=== PATIENT | male | born 1985 | race Caucasian/White ===

== ENCOUNTER 2021-10-12 21:12 | Emergency (ER) | payer MEDICAID, SELFPAY ==
[2021-10-12 21:34] VITALS: BP 121/75; PULSE 101; RESP 20; TEMP 36.7; O2SAT 97; BMI 33.6
--- NOTE | 2021-10-12 21:47 | ECG_ITS ---
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 Measurements Intervals Bland Rate: 97 P: 70 MT: 159 QRS: 29 QRSD: 85 T: 35 QT: 341 QTc: 435 Interpretive Statements SINUS RHYTHM POSSIBLE LEFT ATRIAL ENLARGEMENT [-0.1mV P-WAVE IN V1/V2] Compared to ECG 01/03/2018 15:12:24 Sinus arrhythmia no longer present ST (T wave) deviation no longer present Early repolarization no longer present Electronically Signed On 10-14-2021 9:15:29 CDT by Dilan Judd M.D. [id number]
--- NOTE | 2021-10-12 21:47 | XRR_ITS ---
PROCEDURE INFORMATION: Exam: XR Chest Exam date and time: 10/12/2021 9:51 PM Age: 35 years old Clinical indication: Sternal or substernal pain; Additional info: Cp TECHNIQUE: Imaging protocol: XR of the chest. Views: 1 view. COMPARISON: CR Chest 2 views* [id number] 01/03/2018 4:26 PM FINDINGS: Lungs: Unremarkable. No consolidation. Pleural spaces: Unremarkable. No pleural effusion. No pneumothorax. Heart/Mediastinum: Unremarkable. No cardiomegaly. Bones/joints: Unremarkable. XR/XR chest 1V portable [id number] IMPRESSION: No acute findings.
[2021-10-12 21:58] LABS: Basophils # 0.1 10^3/uL (0.0-0.1); Basophils % 0.3 %; Eosinophils # 0.3 10^3/uL (0.0-0.8); Eosinophils % 1.3 %; Hematocrit 48.7 % (42.0-52.0); Hemoglobin 16.5 g/dL (11.7-16.6); Lymphocytes # 0.6 10^3/uL (0.8-4.8); Lymphocytes % 2.7 %; Mean Corpuscular HGB Conc 33.9 g/dL (30.0-36.0); Mean Corpuscular Hemoglobin 30.6 pg (28.0-34.0); Mean Corpuscular Volume 90.4 fl (80-94); Mean Platelet Volume 10.5 fL (7.4-10.4); Monocytes # 1.1 10^3/uL (0.2-0.9); Monocytes % 4.9 %; Neutrophils # 19.75 10^3/uL (1.8-7.7); Neutrophils % 90.4 %; Nucleated Red Blood Cells % 0 %; Platelet Count 264 10^3/cmm (130-400); Red Blood Count 5.39 10^6/uL (4.1-5.3); Red Cell Distribution Width 12.1 % (12.1-15.1); White Blood Count 21.9 10^3/uL (4.0-10.0)
--- NOTE | 2021-10-12 22:10 | CTR_ITS ---
PROCEDURE INFORMATION: Exam: CTA Chest With Contrast Exam date and time: 10/12/2021 11:32 PM Age: 35 years old Clinical indication: Sternal or substernal pain; Patient HX: C/O central cp; Additional info: Chest pain TECHNIQUE: Imaging protocol: Computed tomographic angiography of the chest with contrast. 3D rendering (Not supervised by radiologist): MIP and/or 3D reconstructed images were created by the technologist. Radiation optimization: All CT scans at this facility use at least one of these dose optimization techniques: automated exposure control; mA and/or kV adjustment per patient size (includes targeted exams where dose is matched to clinical indication); or iterative reconstruction. Contrast material: OMNI 350; Contrast volume: 67 ml; Contrast route: INTRAVENOUS (IV); COMPARISON: CR (CHEST, ) 10/12/2021 9:51 PM RADIATION DOSE METRICS: Total DLP (mGy-cm): 530.84 FINDINGS: Pulmonary arteries: Normal. No pulmonary emboli. Aorta: Unremarkable. No aortic aneurysm. No aortic dissection. Lungs: Mild haziness seen in the dependent portion of the lungs compatible with dependent atelectasis. Pleural spaces: Unremarkable. No pneumothorax. No pleural effusion. Heart: Unremarkable. No cardiomegaly. No pericardial effusion. Lymph nodes: Unremarkable. No enlarged lymph nodes. Bones/joints: Unremarkable. No acute fracture. Soft tissues: Unremarkable. CT/CT angio chest PE protcl [id number] IMPRESSION: 1. There is no evidence for pulmonary emboli. 2. There are no acute chest findings.
[2021-10-12 22:25] LABS: Troponin(5th) Baseline 7 ng/L (0-15)
[2021-10-12 22:29] LABS: Alanine Aminotransferase 79 U/L (0-41); Albumin Level 5.5 g/dL (3.5-5.2); Alkaline Phosphatase 84 IU/L (40-130); Aspartate Amino Transferase 37 U/L (0-40); Blood Urea Nitrogen 16 mg/dL (6-20); Calcium 10.4 mg/dL (8.5-10.5); Carbon Dioxide 22 mmol/L (22-29); Chloride 101 mmol/L (98-107); Globulin 2.2 g/dL (1.3-4.6); Glomerular Filtration Rate 85.5 mL/min (90-130); Glucose 119 mg/dL (65-115); NT Pro B Type Natriuretic Pept 5 pg/mL (0-125); Osmolality Calculated 288 mOsm/kg (285-295); Sodium 138 mmol/L (136-145); Total Bilirubin 0.4 mg/dL (0.15-1.2); Total Protein 7.7 g/dL (6.6-8.7)
[2021-10-12 22:31] LABS: Anion Gap 19.5 (5-19); Potassium 4.5 mmol/L (3.5-5.1)
[2021-10-12] MEDS: ondansetron 2 mg/ML SDV 2 mL 4 MG IVP (22:31)
[2021-10-12] MEDS: morphine 4 mg/mL SDV 1 mL 8 MG IVP (22:31)
[2021-10-12 23:17] VITALS: BP 130/85; PULSE 95; RESP 14; O2SAT 96
[2021-10-12] MEDS: iohexol 350 mg/mL 100 mL Btl IV (23:37)
[2021-10-12 23:52] VITALS: BP 161/94; PULSE 94; RESP 15; O2SAT 94
[2021-10-13] MEDS: ketorolac 30 mg/mL INJ 15 MG IVP (00:52)
[2021-10-13 01:04] VITALS: BP 125/63; PULSE 88; RESP 18; O2SAT 96
--- NOTE | 2021-10-15 01:19 | ED_ITS ---
HPI - Chest Pain General: Chief Complaint: Chest Pain Stated Complaint: Chest pain Time Seen by Provider: 10/12/21 22:03 Source: patient History of Present Illness: 35 year old male who says he's had a heart attack in the past. No stents placed. He also says that he's had pericarditis. He presents with sharp crushing chest pain. He has shortness of breath. No fever. No vomiting. MD complaint: chest pain Pertinent past history: prior MN and other Onset (ago): hour(s) Timing of current episode: constant Prior episodes: Yes Onset: during rest Pain location: substernal Severity: severe Quality: heaviness and sharp Relieving factors: nothing Exacerbating factors: nothing Associated symptoms: Reports dyspnea; Deny abdominal pain, diaphoresis, fever(s), leg edema or nausea Review of Systems Const: Denies: fever(s) or diaphoresis Eyes: Denies: change in vision ENMT: Denies: throat pain Card: Reports: chest pain; Denies: edema Resp: Reports: dyspnea GI: Denies: abdominal pain or nausea Neuro: Denies: numbness in extremities or weakness in extremities Physical Exam Const: COMMON NORMALS: alert GENERAL APPEARANCE: cooperative and ill ap pearing (mildly); not comfortable HENMT: COMMON NORMALS: normocephalic and TM's normal bilaterally HEAD & SCALP: normocephalic FACE & SINUS: normal facial exam TYMPANIC MEMBRANE: TM's normal bilaterally Eye: COMMON NORMALS: Equal, round and reactive pupils present and EOMs intact bilaterally PUPIL: Yes Equal, round and reactive pupils present Chest: COMMONS NORMALS: normal inspection of the chest CHEST: Yes tenderness Resp: COMMON NORMALS: normal respiratory effort, No retractions, No use of accessory muscles and clear to auscultation bilaterally AUSCULTATION: clear to auscultation bilaterally Cardio: COMMON NORMALS: regular rate, regular rhythm and Peripheral pulses 2+ throughout RATE: regular rate RHYTHM: regular rhythm PERIPHERAL PULSES: Peripheral pulses 2+ throughout GI: COMMON NORMALS: Normal to inspection, nondistended, normoactive bowel sounds present Extremity: COMMON NORMALS: no pedal edema Neuro: SENSORIUM/ORIENTATION: Yes alert Course Vital Signs: Vital signs: Vital Signs Temperature 98.1 F 10/12/21 21:34 Pulse Rate 88 10/13/21 01:04 Respiratory Rate 18 10/13/21 01:04 Blood Pressure 125/63 10/13/21 01:04 Pulse Oximetry 96 10/13/21 01:04 MDM - Chest Pain Medical Decision Making Ongoing cp with a hx of pericarditis. WBC is 22 with mild left shift. Hb is normal. BMP is normal. Troponin normal at baseline and at 2h. CTA is performed due to hx. It is negative. No pericardial effusion. No reason for leukocytosis identified. Will allow home but with close oupt fu. Lab Data : 10/12/21 21:50 10/12/21 21:50 Radiology Impressions Chest X-Ray 10/12/21 21:47 IMPRESSION: No acute findings. Chest CTA 10/12/21 22:10 IMPRESSION: 1. There is no evidence for pulmonary emboli. 2. There are no acute chest findings. Laboratory Results WBC 21.9 10^3/uL (4.0-10.0) H 10/12/21 21:50 RBC 5.39 10^6/uL (4.1-5.3) H 10/12/21 21:50 Hgb 16.5 g/dL (11.7-16.6) 10/12/21 21:50 Hct 48.7 % (42.0-52.0) 10/12/21 21:50 MCV 90.4 fl (80-94) 10/12/21 21:50 MCH 30.6 pg (28.0-34.0) 10/12/21 21:50 MCHC 33.9 g/dL (30.0-36.0) 10/12/21 21:50 RDW 12.1 % (12.1-15.1) 10/12/21 21:50 Plt Count 264 10^3/cmm (130-400) 10/12/21 21:50 MPV 10.5 fL (7.4-10.4) H 10/12/21 21:50 Neut % (Auto) 90.4 % 10/12/21 21:50 Lymph % (Auto) 2.7 % 10/12/21 21:50 Greenlee % (Auto) 4.9 % 10/12/21 21:50 Eos % (Auto) 1.3 % 10/12/21 21:50 Baso % (Auto) 0.3 % 10/12/21 21:50 Neut # (Auto) 19.75 10^3/uL (1.8-7.7) H 10/12/21 21:50 Lymph # (Auto) 0.6 10^3/uL (0.8-4.8) L 10/12/21 21:50 Greenlee # (Auto) 1.1 10^3/uL (0.2-0.9) H 10/12/21 21:50 Eos # (Auto) 0.3 10^3/uL (0.0-0.8) 10/12/21 21:50 Baso # (Auto) 0.1 10^3/uL (0.0-0.1) 10/12/21 21:50 Nucleated RBC % (auto) 0 % 10/12/21 21:50 Nucleated RBCs # 0.0 /100WBC 10/12/21 21:50 Sodium 138 mmol/L (136-145) 10/12/21 21:50 Potassium 4.5 mmol/L (3.5-5.1) 10/12/21 21:50 Chloride 101 mmol/L (98-107) 10/12/21 21:50 Carbon Dioxide 22 mmol/L (22-29) 10/12/21 21:50 Anion Gap 19.5 (5-19) H 10/12/21 21:50 BUN 16 mg/dL (6-20) 10/12/21 21:50 Creatinine 1.0 mg/dL (0.7-1.2) 10/12/21 21:50 GFR Calculation 85.5 mL/min (90-130) L 10/12/21 21:50 Glucose 119 mg/dL (65-115) H 10/12/21 21:50 Calculated Osmolality 288 mOsm/kg (285-295) 10/12/21 21:50 Calcium 10.4 mg/dL (8.5-10.5) 10/12/21 21:50 Total Bilirubin 0.4 mg/dL (0.15-1.2) 10/12/21 21:50 AST 37 U/L (0-40) 10/12/21 21:50 ALT 79 U/L (0-41) H 10/12/21 21:50 Alkaline Phosphatase 84 IU/L (40-130) 10/12/21 21:50 Troponin T Baseline 7 ng/L (0-15) 10/12/21 21:50 Troponin T 120 Minute 6.00 ng/L (0-15) 10/12/21 23:55 Delta Troponin T Not Reportable 10/12/21 23:55 NT-Pro-B Natriuret Pep 5 pg/mL (0-125) 10/12/21 21:50 Total Protein 7.7 g/dL (6.6-8.7) 10/12/21 21:50 Albumin 5.5 g/dL (3.5-5.2) H 10/12/21 21:50 Globulin 2.2 g/dL (1.3-4.6) 10/12/21 21:50 Discharge Plan Discharge Patient Disposition: Home Clinical Impression: Chest pain Condition: Stable Prescriptions: New Medrol (Kwame) 4 mg tablets,dose pack See Rx Instructions .ROUTE .COMPLEX Qty: 21 0RF Rx Instructions: orally per package directions Discharge Orders: Discharge ED (Routine); Ordered 10/13/21 Ordered By: Akash Gao Referrals: James Mccrary MD [Primary Care Provider] - Discharge Diet: Advance as tolerated Discharge Activity: Resume usual activity Patient Instructions: Chest Pain (ED) Activity Restrictions/Additional Instructions: Return for worsening chest pain despite treatment, fever greater than 100, cough, sputum production, vomiting, any other concerning symptoms. Coding Level of Care Code ED Fence Erector Supervisor for Rick Cardenas
== END 2021-10-13 01:06 | disposition home or self-care (01) ==
PROVIDERS: Nurse Practitioner Family; Emergency Provider Emergency Medicine; PCP Family Medicine
DX: R07.9 Chest pain, unspecified (principal); I25.2 Old myocardial infarction
CPT/HCPCS: 71045; 71275; 80053; 83880; 84484; 85025; 93005; 96374; 96375; 99284; J1885; J2270; J2405; Q9967

== ENCOUNTER → 2022-01-19 10:12 | Outpatient (BNVA) | payer MEDICAID, SELFPAY | PROVIDERS: PCP Family Medicine; Visit Provider Anesthesiology Pain Medicine | DX: G89.29 Other chronic pain (principal); M54.14 Radiculopathy, thoracic region; M54.16 Radiculopathy, lumbar region; M79.604 Pain in right leg; M79.605 Pain in left leg; Z87.891 Personal history of nicotine dependence | CPT/HCPCS: 72070; 72110; 99204 ==

== ENCOUNTER 2022-02-15 19:05 | Emergency (ER) | payer MEDICAID, SELFPAY ==
[2022-02-15 19:10] VITALS: BP 141/88; PULSE 83; RESP 16; TEMP 37; O2SAT 98; BMI 33.6
--- NOTE | 2022-02-15 19:29 | W.ED.HA ---
HPI - Headache General: Chief Complaint: Headache Stated Complaint: Ear Ache\Headache Time Seen by Provider: 02/15/22 19:25 History of Present Illness: 36-year-old male patient comes in with for persistent headache since having acupuncture about 1 week ago. Patient has chronic neck pain and was recommended for acupuncture to help with his chronic pain. Patient reports that after having the acupuncture he had an increase in his neck discomfort and now has a headache in which is made it difficult for him to sleep. Patient also reports some more difficulty with swallowing cold items since the increase in his neck discomfort. Patient appears nontoxic. Patient appears in mild to moderate pain. Review of Systems General: Reports: 10 or more systems reviewed and unremarkable except in HPI and below Musc: Reports: neck pain Neuro: Reports: headache(s) PFSH ED PFSH: Family History (Updated 01/19/22 @ 10:41 by Katherine Merino LPN) Other CAD (coronary artery disease) Cancer Chronic kidney disease (CKD) Diabetes Social History Smoking and tobacco status: former smoker Physical Exam Const: COMMON NORMALS: alert HENMT: COMMON NORMALS: normocephalic HEAD & SCALP: normocephalic Eye: GENERAL EYE: appearance normal, both eyes and all related structures Neck/C-Spine: COMMON NORMALS: no meningeal signs CERVICAL SPINE: No Cervical spine tenderness, No step off deformity and Yes Paracervical muscle tenderness Chest: COMMONS NORMALS: normal inspection of the chest Resp: COMMON NORMALS: normal respiratory effort Cardio: COMMON NORMALS: regular rate RATE: regular rate Back/Pelvis: COMMON NORMALS: thoracic and lumbar spine normal to inspection Extremity: COMMON NORMALS: normal to inspection Neuro: SENSORIUM/ORIENTATION: Yes alert MENINGEAL SIGNS: Yes no meningeal signs Skin: COMMON NORMALS: no rashes or lesions noted GENERAL SKIN EXAM: no rashes or lesions noted Course Vital Signs: Vital signs: Vital Signs Temperature 98.6 F 02/15/22 19:10 Pulse Rate 83 02/15/22 19:10 Respiratory Rate 16 02/15/22 19:10 Blood Pressure 141/88 02/15/22 19:10 Pulse Oximetry 98 02/15/22 19:10 Oxygen Delivery Me thod 02/15/22 19:10 MDM - Headache Medical Decision Making 36-year-old male patient comes in today with complaints of neck pain that is worsened throughout the week since having acupuncture. Patient now has a headache for the last 2 to 3 days he has been unable to get control with [id number] medications. On exam patient appears in mild to moderate pain. Patient appears nontoxic. Posterior pharynx is pink and moist. Respirations are even lungs are clear to auscultation. Patient has some muscle tenderness to the cervical muscles of his neck. Bilateral tympanic membranes are normal. Differential diagnosis includes intervertebral disc disease, facet arthropathy, tendinitis of the neck, migraine headache. We will treat patient's headache with Toradol, dexamethasone, and 1 hydrocodone tablet. Patient be continued on prednisone routinely for the next 5 days to help with pain and inflammation. Ketorolac and promethazine will be used for recurrent headache. Hydrocodone will be used for severe pain. Patient reported understanding of care plan need for follow-up with primary care for further evaluation and treatment. I also reviewed red flags for patient to return to the ER. No signs of severe distress, serious injury, or serious infection is noted at this time. Discharge Plan Discharge Patient Disposition: Home Clinical Impression: Calcific tendinitis, Tension headache, Neck pain Condition: Stable Prescriptions: New hydrocodone-acetaminophen 5-325 mg tablet 1 tab PO Q8H PRN (Reason: pain (scale score 7-10)) Qty: 6 0RF prednisone 20 mg tablet 20 mg PO BID 5 Days Qty: 10 0RF ketorolac 10 mg tablet 10 mg PO Q8H PRN (Reason: pain) 5 Days Qty: 15 0RF promethazine 12.5 mg tablet 12.5 mg PO TID PRN (Reason: headache or nausea) Qty: 10 0RF No Action gabapentin 300 mg capsule 300 mg PO TID Qty: 90 0RF Medrol (Kwame) 4 mg tablets,dose pack See Rx Instructions .ROUTE .COMPLEX Qty: 21 0RF Rx Instructions: orally per package directions Discharge Orders: Discharge ED (Routine); Ordered 02/15/22 Ordered By: Aleksander Astudillo Referrals: James Mccrary MD [Primary Care Provider] - Discharge Diet: Usual diet Discharge Activity: Increase activity as tolerated Patient Instructions: Tension Headache (ED), Opioid Safety Activity Restrictions/Additional Instructions: Drink plenty of water with medication. Use ketorolac with promethazine 3 times a day as needed for headache. Use hydrocodone for severe pain relief. Continue with prednisone 20 mg twice a day for the next 5 days for inflammation. You may need to take prednisone with food on your stomach to avoid stomach discomfort. Follow-up with primary care for further instruction. Return to ER for worsening symptoms such as fever greater than 100.4, uncontrolled nausea vomiting, or worsening pain. Coding Level of Care Code ED Vacuum Tester Cans for Rick Cardenas
[2022-02-15] MEDS: HYDROcodone-acetaminophen 10-325 mg Tablet 1 TAB PO (19:38)
[2022-02-15] MEDS: ketorolac 30 mg/mL INJ IM (19:39)
[2022-02-15] MEDS: dexamethasone 10 mg/mL INJ IM (19:39)
[2022-02-15] MEDS: promethazine 25 mg Tablet PO (19:45)
== END 2022-02-15 20:06 | disposition home or self-care (01) ==
PROVIDERS: Emergency Provider Nurse Practitioner Family; PCP Family Medicine
DX: G44.209 Tension-type headache, unspecified, not intractable (principal); M54.2 Cervicalgia; M65.20 Calcific tendinitis, unspecified site; Z87.891 Personal history of nicotine dependence
CPT/HCPCS: 96372; 99284; J1100; J1885; Q0169

== ENCOUNTER → 2022-02-23 09:02 | Outpatient (BNVA) | payer MEDICAID, SELFPAY | PROVIDERS: PCP Family Medicine; Visit Provider Anesthesiology Pain Medicine | DX: M54.50 Low back pain, unspecified (principal); M79.604 Pain in right leg; M79.605 Pain in left leg; Z79.891 Long term (current) use of opiate analgesic; Z87.891 Personal history of nicotine dependence | CPT/HCPCS: 99214 ==

== ENCOUNTER → 2022-03-26 09:08 | Outpatient (BNVA) | payer MEDICAID, SELFPAY | PROVIDERS: PCP Family Medicine; Visit Provider Anesthesiology Pain Medicine | DX: M79.604 Pain in right leg (principal); M79.605 Pain in left leg; Z87.891 Personal history of nicotine dependence; M51.9 Unspecified thoracic, thoracolumbar and lumbosacral intervertebral disc disorder | CPT/HCPCS: 99214 ==

== ENCOUNTER 2022-03-30 20:00 | Outpatient (CLI) | payer OTHER, SELFPAY | END 2022-03-30 20:01 | disposition home or self-care (01) | LOC: SLEEP 03-31 08:09 | PROVIDERS: PCP Family Medicine; Visit Provider Family Medicine | DX: G47.33 Obstructive sleep apnea (adult) (pediatric) (principal) | CPT/HCPCS: 95810 ==

== ENCOUNTER → 2022-04-09 14:02 | Outpatient (BNVA) | payer OTHER, SELFPAY | PROVIDERS: PCP Nurse Practitioner; Visit Provider Internal Medicine | DX: R07.89 Other chest pain (principal); E78.5 Hyperlipidemia, unspecified; Z87.891 Personal history of nicotine dependence | CPT/HCPCS: 93005; 99203; 99204 ==

== ENCOUNTER 2022-04-27 07:18 | Outpatient (CLI) | payer OTHER, SELFPAY ==
--- NOTE | 2022-04-27 | US_ITS ---
WS: [id number] RIGHT UPPER QUADRANT ULTRASOUND HISTORY: Elevated liver enzymes COMPARISON: None available. Liver: 14.7 cm in length. Normal size liver. No bile duct dilatation or mass. Portal Vein: Normal hepatopetal flow with monophasic waveform. Gallbladder: Normally distended gallbladder with no stones or wall thickening. CBD: 0.2 cm Pancreas: Normal size and echogenicity. Right kidney: 12.3 cm in length. Normal size and echogenicity. No hydronephrosis or mass. Aorta and IVC: Unremarkable abdominal aorta and IVC. No ascites. US/US abdomen limited [id number] IMPRESSION: Normal RIGHT upper quadrant ultrasound.
== END 2022-04-27 07:19 | disposition home or self-care (01) ==
PROVIDERS: PCP Nurse Practitioner; Visit Provider Family Medicine
DX: R74.8 Abnormal levels of other serum enzymes (principal)
CPT/HCPCS: 76705

== ENCOUNTER 2022-05-04 09:20 | Outpatient (CLI) | payer OTHER, SELFPAY ==
--- NOTE | 2022-05-04 10:00 | USCV_ITS ---
Warner, Vega Age: 36 Gender: M : 1985 Exam Date: 05/04/2022 09:36 Ordering Phys: Jens Manriquez M.D ([email or web address]) Technologist: Rita Gonzalez Exam Location: [facility] [place] Indication: SOB, CP BP: 132 / 88 HR: 63 Rhythm: Sinus Technical Quality: Good MEASUREMENTS (Male / Female) Normal Values 2D ECHO LV Diastolic Diameter PLAX 4.4 cm 4.2 - 5.9 / 3.9 - 5.3 cm LV Systolic Diameter PLAX 3.4 cm IVS Diastolic Thickness 0.9 cm 0.6 - 1.0 / 0.6 - 0.9 cm IVS Systolic Thickness 1.3 cm LVPW Diastolic Thickness 0.9 cm 0.6 - 1.0 / 0.6 - 0.9 cm LVPW Systolic Thickness 1.8 cm LVOT Diameter 2.1 cm LV Ejection Fraction 2D Teich 47.4 % LV Ejection Fraction MOD 2C 70.7 % LV Ejection Fraction 2C AL 70.2 % LA Diameter 2.4 cm LA Width 3.6 cm LA Height 4.8 cm RA Width 2.9 cm RA Height 4.1 cm Aorta at Sinotubular Diameter 3.3 cm IVC Diameter 1.1 cm M-MODE MV E Point Septal Separation 0.4 cm DOPPLER AV Peak Velocity 142.0 cm/s LVOT Peak Velocity 81.0 cm/s AV Area Cont Eq vti 2.5 cm squared AV Area Cont Eq pk 2.0 cm squared MV Peak Velocity 101.0 cm/s MV Area PHT 4.8 cm squared Mitral E to A Ratio 1.6 MV E' Velocity 48.5 cm/s Mitral E to MV E' Ratio 7.1 Mitral E to LV E' Lateral Ratio 6.1 Mitral E to LV E' Septal Ratio 8.7 TR Peak Velocity 86.0 cm/s TR Peak Gradient 3.0 mmHg Right Atrial Pressure 3.0 mmHg Pulmonary Artery Systolic Pressu 6.0 mmHg RV Acceleration Time 0.1 s RV Ejection Time 0.3 s RV AcT/ET 0.4 FINDINGS Left Ventricle Normal left ventricular size, systolic function and wall thickness, with no regional wall motion abnormalities. Left ventricular ejection fraction is estimated at 60 %. Normal diastolic function. Right Ventricle Normal right ventricular size and systolic function. Right ventricular systolic pressure 6 mmHg. Right Atrium Normal right atrial size. Left Atrium Normal left atrial size. Mitral Valve Structurally normal mitral valve. No mitral valve stenosis. Trace mitral valve regurgitation. Aortic Valve Structurally normal trileaflet aortic valve. No aortic valve stenosis. No aortic valve regurgitation. Tricuspid Valve Structurally normal tricuspid valve. No tricuspid valve stenosis. Trace tricuspid valve regurgitation. Pulmonic Valve Structurally normal pulmonic valve. No pulmonary valve stenosis. No significant pulmonary valve regurgitation. Pericardium No pericardial effusion. Aorta Normal size aortic root and proximal ascending aorta. IVC Normal IVC dimension with >50% respiratory change of the inferior vena cava. CONCLUSIONS 1. Normal left ventricular size, systolic function and wall thickness, with no regional wall motion abnormalities. Left ventricular ejection fraction is estimated at 60 %. Normal diastolic function. 2. Normal right ventricular size and systolic function. 3. No significant valvular abnormality. 4. No prior similar studies to compare. Sandra Brand MD (Electronically Signed) Final Date: 10 May 2022 15:57 S
== END 2022-05-04 09:21 | disposition home or self-care (01) ==
LOC: RAD 09:21
PROVIDERS: PCP Nurse Practitioner; Visit Provider Internal Medicine
DX: R06.02 Shortness of breath (principal); R07.9 Chest pain, unspecified
CPT/HCPCS: 93306

== ENCOUNTER 2022-05-06 10:05 | Emergency (ER) | payer OTHER, SELFPAY ==
[2022-05-06 10:30] VITALS: BP 125/82; PULSE 81; RESP 14; TEMP 36.7; O2SAT 98; BMI 35.0
--- NOTE | 2022-05-06 12:15 | W.ED.BACK ---
HPI - Back Pain/Injury General: Chief Complaint: Back Pain/Injury Stated Complaint: Back pain Time Seen by Provider: 05/06/22 11:31 Source: patient Mode of arrival: EMS History of Present Illness: 36-year-old male presents emergency room complaining of back pain. He said chronic back problems. He has pain radiating down his legs bilaterally severe he feels like it is difficult time walking. It began yesterday after he had a chiropractor appointment they did some cupping treatments to his lower low back he felt a little better for a while then it began to worsen to the point where it was severe. He has not had any bowel or bladder dysfunction. He has been seen at the ID for this and has an MRI scheduled evidently tomorrow. No previous surgeries of his low back. MD elicited complaint: back pain Pertinent past history: prior back pain Onset (ago): day(s) (1) Timing: constant Severity: severe Similar Symptoms Previously: Yes Quality: sharp Location: lumbar spine Radiation: left upper leg and right upper leg Associated symptoms: Reports difficulty walking, numbness, tingling/numbness/burning and weakness; Deny abdominal pain, arthralgias, chills, change in bowel habits, dysuria, fatigue, fecal incontinence, fever(s), hematuria, myalgias, nausea, syncope, urinary frequency, urinary urgency or vomiting Review of Systems Const: Denies: fever(s), chills, fatigue or malaise ENMT: Denies: throat pain, ear or mastoid pain, nasal discharge or nasal congestion Card: Denies: syncope Resp: Denies: dyspnea, productive cough or non-productive cough GI: Denies: abdominal pain, nausea, vomiting, fecal incontinence or change in bowel habits : Denies: flank pain, difficulty urinating, dysuria, urinary frequency, urinary urgency or hematuria Skin/Breast: Denies: rash or pruritus Neuro: Reports: difficulty walking PFSH ED PFSH: Medical History (Updated 05/14/22 @ 00:01 by ) Hearing loss Hypoglycemia Migraine PTSD (post-traumatic stress disorder) Sleep apnea Surgical History (Updated 05/06/22 @ 12:18 by Nasim Myers DO) No pertinent past surgical history Family History Other CAD (coronary artery disease) Cancer Chronic kidney disease (CKD) Diabetes Social History Smoking and tobacco status: former smoker Physical Exam Const: GENERAL APPEARANCE: cooperative and comfortable ORIENTATION/CONSCIOUSNESS: Yes awake, Yes oriented to person, Yes oriented to place and Yes oriented to time HENMT: COMMON NORMALS: normocephalic, atraumatic and hearing grossly normal bilaterally HEAD & SCALP: normocephalic and atraumatic Resp: COMMON NORMALS: normal respiratory effort, No retractions, No use of accessory muscles and clear to auscultation bilaterally AUSCULTATION: clear to auscultation bilaterally Cardio: COMMON NORMALS: regular rate, regular rhythm and No murmurs present (Cardio) RATE: regular rate RHYTHM: regular rhythm GI: COMMON NORMALS: Soft to palpation and No hepatosplenomegaly present AUSCULTATION: Yes normoactive bowel sounds PALPATION: Yes Soft to palpation, No Tenderness to palpation present (GI), No Guarding due to palpation present (GI) and Yes No hepatosplenomegaly present Extremity: COMMON NORMALS: normal to inspection, capillary refill normal, no clubbing, cyanosis or edema, no calf tenderness and no pedal edema Neuro: SENSORIUM/ORIENTATION: Yes oriented to person, Yes oriented to place and Yes oriented to time DEEP TENDON REFLEXES: Left patellar reflex intensity grade: 1+ and Right ankle reflex intensity grade: 1+ OTHER: Dorsum plantar flex 5/5 sensation lower extremities reportedly some numbness and tingling. Straight leg raising is positive bilaterally. Skin: COMMON NORMALS: no rashes or lesions noted GENERAL SKIN EXAM: no rashes or lesions noted Course Vital Signs: Vital signs: Vital Signs Temperature 98.0 F 05/06/22 10:30 Pulse Rate 80 05/06/22 15:13 Respiratory Rate 16 05/06/22 15:13 Blood Pressure 108/72 05/06/22 15:13 Pulse Oximetry 96 05/06/22 15:13 Oxygen Delivery Me thod 05/06/22 15:13 MDM - Back Pain/Injury Medical Decision Making back pain improved with meds given. SCripts as above. Pt to follwo up with pcp if not resolving. Medical Records I reviewed the patient's medical records. Labs I reviewed the patient's lab results. Laboratory Results POC Glucose 162 mg/dL (70-110) H 05/06/22 15:22 Discharge Plan Discharge Patient Disposition: Home Clinical Impression: Lumbar radiculopathy Condition: Stable Prescriptions: New prednisone 20 mg tablet 20 mg PO TID Qty: 15 0RF Rx Instructions: 1 p.o. 3 times daily x3 days, 1 p.o. twice daily x2 days, 1 p.o. daily x2 days Lyrica 75 mg capsule 75 mg PO BID Qty: 60 0RF tizanidine 4 mg tablet 4 mg PO Q6H PRN (Reason: muscle spasticity) Qty: 20 0RF Rx Instructions: do not exceed 3 doses per 24 hrs hydrocodone-acetaminophen 5-325 mg tablet 1 tab PO Q6H PRN (Reason: pain) Qty: 15 0RF diclofenac sodium 75 mg tablet,delayed release (DR/EC) 75 mg PO Q12H PRN (Reason: pain) Qty: 20 0RF No Action cholecalciferol (vitamin D3) 50 mcg (2,000 unit) capsule 100 mcg PO DAILY atorvastatin 80 mg tablet 40 mg PO DAILY gabapentin 300 mg capsule 300 mg PO TID Qty: 90 0RF Discharge Orders: Discharge ED (Routine); Ordered 05/06/22 Ordered By: Nasim Myers Referrals: Cindy Winchester FNP [Primary Care Provider] - Discharge Diet: Usual diet Discharge Activity: Limit activity as instructed Patient Instructions: Opioid Safety, Pain Management Activity Restrictions/Additional Instructions: No heavy lifting stooping bending or twisting. Use medications given above for your back pain. Keep appointment for MRI tomorrow. Coding Level of Care Code ED Felt Washing Machine Tender for Rick Fwd Exam Comprehensive
[2022-05-06] MEDS: dexamethasone 10 mg/mL INJ IM (12:37)
[2022-05-06 12:39] VITALS: RESP 18; O2SAT 98
[2022-05-06] MEDS: ketorolac 30 mg/mL INJ IVP (12:39)
[2022-05-06] MEDS: morphine 4 mg/mL SDV 1 mL IVP ×2 (12:39→13:31)
[2022-05-06] MEDS: orphenadrine 30 mg/mL Inj 2 mL 60 MG IVP (12:40)
[2022-05-06 13:31] VITALS: RESP 16
[2022-05-06 14:19] VITALS: BP 114/70; PULSE 82; RESP 17; O2SAT 96
[2022-05-06 14:33] VITALS: RESP 17
[2022-05-06] MEDS: HYDROmorphone 1 mg/mL INJ 1 mL IVP (14:33)
[2022-05-06 15:13] VITALS: BP 108/72; PULSE 80; RESP 16; O2SAT 96
[2022-05-06 15:26] LABS: Glucose Point of Care 162 mg/dL (70-110)
== END 2022-05-06 16:00 | disposition home or self-care (01) ==
PROVIDERS: Emergency Provider Family Medicine; PCP Nurse Practitioner
DX: M54.16 Radiculopathy, lumbar region (principal); Z87.891 Personal history of nicotine dependence
CPT/HCPCS: 36416; 82962; 96372; 96374; 96375; 96376; 99284; J1100; J1170; J1885; J2270; J2360

== ENCOUNTER 2022-05-07 07:02 | Outpatient (CLI) | payer OTHER, SELFPAY ==
--- NOTE | 2022-05-07 07:25 | MR_ITS ---
WS: [id number] MRI HEAD WITHOUT CONTRAST TECHNIQUE: Sagittal T1, T2 axial, T2 axial FLAIR, axial and coronal T1 images, axial susceptibility w eighted imaging, axial diffusion weighted images, and coronal T2 images were obtained. CLINICAL INFORMATION: MEMORY LOSS AND CHRONIC TENSION HEADACHES COMPARISON: CT December 2017 FINDINGS: No evidence of restricted diffusion to suggest acute ischemia. Ventricular system and basal cisterns are patent. 2 or 3 tiny foci of T2 hyperintensity in the periventricular and subcortical white matter of doubtful clinical significance but can be seen with migraine headaches. No extra-axial fluid fareed ections. No evidence of mass or mass effect. Normal posterior fossa. No extra-axial fluid collections. No evidence of mass or mass effect. Normal posterior nasopharynx. Paranasal sinuses and mastoid air cells are well aerated. No hemosiderin on th e susceptibility weighted images. Normal optic chiasm and pituitary infundibulum. MR/MR head wo con* [id number] IMPRESSION: 1. No evidence of restricted diffusion to suggest acute ischemia. 2. 2 or 3 tiny foci of T2 hyperintensity in the subcortical and periventricula r white matter of doubtful clinical significance but can be seen with migraine headaches. 3. Normal optic chiasm and pituitary infundibulum. 4. No hemosiderin on susceptibly weighted images. 5. No other suspicious findings
--- NOTE | 2022-05-07 07:25 | MR_ITS ---
WS: [id number] MRI LUMBAR SPINE NONCONTRAST TECHNIQUE: Sagittal T1, T2 and STIR imaging. Axial T1 and T2 imaging. CLINICAL INFORMATION: RIGHT RADICULOPATHY COMPARISON: None. FINDINGS: Normal lumbar alignment. No acute compression. No high-grade central canal stenosis. L1-L2: Normal. L2-L3: Normal. L3-L4: Tiny LEFT foraminal protrusion with mild LEFT foraminal narrowing and slight contact of the ex iting L3 nerve root. RIGHT foramen is patent. Spinal canal is patent. Mild facet arthropathy. L4-L5: Mild annular bulging with slight effacement of ventral thecal sac. RIGHT eccentric disc bulgin g with mild RIGHT foraminal narrowing. Mild facet arthropathy. Spinal canal is patent. L5-S1: No significant disc bulging. Mild facet arthropathy. Spinal canal and foramen are patent. Visualized pelvic bony structures: Normal. Paravertebral soft tissues: Normal. MR/MR lumbar spine wo con* [id number] IMPRESSION: 1. Tiny LEFT proximal foraminal protrusion L3-L4 with mild LEFT foraminal narr owing and slight contact of the exiting LEFT L3 nerve root. 2. RIGHT eccentric disc bulging L4-L5 slightly encroaches on the exiting RIGHT L4 nerve root with mild RIGHT foraminal narrowing. 3. Mild facet arthropathy L3-L4 and L4-L5. 4. Mild disc bulging cervical spine seen on the reimbursement analyst imaging C4-C5.
== END 2022-05-07 07:03 | disposition home or self-care (01) ==
PROVIDERS: PCP Nurse Practitioner; Visit Provider Family Medicine
DX: R41.3 Other amnesia (principal); G44.229 Chronic tension-type headache, not intractable; M51.16 Intervertebral disc disorders with radiculopathy, lumbar region; M48.061 Spinal stenosis, lumbar region without neurogenic claudication; M47.896 Other spondylosis, lumbar region
CPT/HCPCS: 70551; 72148

== ENCOUNTER → 2022-06-29 11:55 | Outpatient (BNVA) | payer OTHER, SELFPAY | PROVIDERS: PCP Nurse Practitioner; Referring Provider Nurse Practitioner Family; Visit Provider Specialist | DX: G43.711 Chronic migraine without aura, intractable, with status migrainosus (principal); R29.898 Other symptoms and signs involving the musculoskeletal system | CPT/HCPCS: 99204 ==

== ENCOUNTER 2022-07-24 09:50 | Outpatient (CLI) | payer OTHER, SELFPAY ==
[2022-07-24 09:59] VITALS: BMI 35.4
--- NOTE | 2022-07-24 09:59 | ECG_ITS ---
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 Interpretive Statements NAME OF STUDY: LEXISCAN SESTAMIBI STRESS TEST INDICATION: [Chest Pain, ] Procedure: At the baseline, the blood pressure was 124/69 mmHg with a heart rate of 67 bpm. The electrocardiogram showed normal sinus rhythm, normal axis with normal ST and T's. The Lexiscan was infused over a period of 20 seconds. A total of 0.4 mg of Lexiscan was infused. The stress phase was continued for a total of 5 minutes. Heart rate was at the end of stress phase was 90 bpm and a blood pressure of 121/81 mmHg. The EKG at the peak infusion revealed normal sinus rhythm with no significant ST-T wave changes. Sestamibi was injected 20 seconds after the Lexiscan infusion. Blood pressure at the end of recovery phase was 117/62 mmHg with a heart rate of 85 bpm. Conclusion: 1. Normal EKG response to Lexiscan infusion 2. No Lexiscan induced chest pain or cardiac arrhythmia. 3. Normal blood pressure and heart rate response. 4. Sestamibi/sestamibi perfusion scan pending; see separate report. Electronically Signed On 08-06-2022 11:28:20 RAMP LEAD by Jens Manriquez M.D. [id number]
--- NOTE | 2022-07-24 09:59 | NMCV_ITS ---
NM prudence perf SPECT r/s* [id number] Vega Warner Age: 36 Gender: M : 1985 Exam Date: 07/24/2022 10:56 Ordering Phys: Jens Manriquez M.D ([email or web address]) Technologist: ISABELL Novoa Exam Location: [facility] Indications: CHEST PAIN STRESS TEST [facility] IMAGE PROTOCOL Rest/Stress 1 Lexiscan Day Radiopharmaceutical Dose (mCi) Administration Site Administered by Rest: Tc-99m 10.7 IV ISABELL Smith Sestamibi Stress:Tc-99m 32.8 IV ISABELL Smith Sestamibi Rest: 24-Jul-2022 60 Discovery 630 Stress: 24-Jul-2022 30 Discovery 630 0.4mg Lexiscan. Images obtained in supine and prone position. SPECT RESULTS Technical Quality: Excellent Raw Data Analysis: Normal Image Corrections: No attenuation or motion correction applied Summed Stress Score: 2 Summed Rest Score: 0 Summed Difference Score: 2 PERFUSION FINDINGS There is a small in size reversible perfusion defect in inferolateral wall. This is consistent with small sized area of ischemia in left circumflex artery territory. FUNCTIONAL RESULTS (calculated via Gated SPECT) Stress Image LV EF (%): 64 Stress EDV (mL):122 TID: 1.11 Stress ESV (mL):44 FUNCTIONAL FINDINGS: There is normal left ventricular systolic function. IMPRESSIONS 1. Abnormal myocardial perfusion imaging with small sized area of ischemia seen in left circumflex artery territory. 2. LV systolic function is normal. Jens Manriquez MD (Electronically Signed) Final Date: 24 July 2022 13:31 S
[2022-07-24] MEDS: regadenoson 0.4 Mg/5 ml Syringe IVP (11:28)
[2022-07-24 11:40] VITALS: BP 117/62; PULSE 82
== END 2022-07-24 09:51 | disposition home or self-care (01) ==
LOC: CDL 09:52
PROVIDERS: PCP Nurse Practitioner; Visit Provider Internal Medicine
DX: R07.9 Chest pain, unspecified (principal); R06.02 Shortness of breath
CPT/HCPCS: 36415; 78452; 93017; 96374; A9500; J2785

== ENCOUNTER → 2022-08-10 11:13 | Outpatient (BNVA) | payer OTHER, SELFPAY | PROVIDERS: PCP Nurse Practitioner; Visit Provider Internal Medicine | DX: R07.9 Chest pain, unspecified (principal); E78.5 Hyperlipidemia, unspecified; Z87.891 Personal history of nicotine dependence | CPT/HCPCS: 99214 ==

== ENCOUNTER 2022-08-20 08:54 | Outpatient (CLI) | payer OTHER, SELFPAY ==
[2022-08-20] VITALS (13 sets, daily range): BP systolic 113–134; BP diastolic 70–104; PULSE 64–89; RESP 13–25; TEMP 36.7; O2SAT 95–98; BMI 31.8
--- NOTE | 2022-08-20 09:00 | XACV_ITS ---
Exam Room: 2 Ht: 160 cm Wt: 82 kg BSA: 1.94 m2 Gender: Male : 1985 Any Known Allergies: Other Exam Priority: Routine Procedure(s): Procedure Description: Diagnostic procedure Procedure Description: Left Heart Catheterization Procedure Description: Left ventriculography Procedure Description: Coronary Angiography Diagnostic Cath Status: Elective Diagnostic Findings * INDICATION: Chest pain/ abnormal stress test. * No significant disease noted in the Left Main, Left Anterior Descending, Right, or Circumflex coronary arteries. * Coronary angiography shows right dominance. Conclusions 1. No significant disease noted in the Left Main, Left Anterior Descending, Right, or Circumflex coronary arteries. 2. Normal left ventricular systolic function. Ejection fraction of 55%. Recommendations * Aggressive risk factor modification. * Outpatient cardiology follow up in 4 weeks. Interventional RX Recommendation: medical therapy and/or counseling Diagnostic RX Recommendation: medical therapy and/or counseling Anticoagulation: Heparin Ventriculography Ejection Fraction: 55.0 % Pressures Phase:Rest AO : 97 / 82 ( 91 ) @ 10:30:00 AM 128 / 94 ( 106 ) @ 10:36:00 AM 123 / 90 ( 103 ) @ 10:36:00 AM LV : 156 / 8 / 29 @ 10:35:00 AM 131 / 6 / 26 @ 10:35:00 AM 140 / 17 / 34 @ 10:36:00 AM 134 / 15 / 30 @ 10:36:00 AM Valves Phase:DefaultPhase AV : 9.0 @ 10:42:13 AM 9.0 @ 10:42:13 AM AV Mean Gradient: 18.0 @ 10:42:13 AM 18.0 @ 10:42:13 AM Clinical Evaluation EBL: 5mL-10mL Procedural Details Pre-Procedure Time Out. Identified patient by full name and date of as verbalized by the patient/guarantor. Does the consent match the physician's order: Yes. Accurate & Complete Informed Consent: Yes. Inpatient/Outpatient History & Physical on Chart: Yes. If H&P is completed, is and addenduem needed: No; If yes, is the addendum complete: N/A. Visualize and Verify Site with Patient/Guarantor: N/A. Relevant Radiology Images available: Yes. The risks, benefits, and alternatives of sedation and/or procedure were discussed by physician. The patient agrees to continue. The risks, benefits, and alternatives of sedation and/or procedure were discussed by physician. The patient agrees to continue. Procedure started. Procedure Consent Obtained. Current Diagnosis : Chest Pain. [facility] Clinical Fraility Score: 3: Managing Well. Slate Picker Indications: Other. Chest Pain Symptom Assessment: Atypical Angina. Correct patient, site and procedure confirmed by cath team. Current diagnosis: Chest Pain. PERRLA. Strong, equal hand sectionizer bilaterally. Lungs clear x 5 lobes. IV Site on Arrival: 20 gauge in the left anticubital. IV Fluids: 0.9% NaCl at KVO. 0 mL infused prior to asset availability leader. Pre Procedural Pulses: bilateral dorsalis pedis was 1+. Pre Procedural Pulses: bilateral posterior tibial was 1+. Pre Procedural Pulses: bilateral radial was 2+. Oxygen started at 2liters/min via nasal canula. right groin was prepped with chloroprep then draped in the usual sterile fashion. right radial was prepped with chloroprep then draped in the usual sterile fashion. Baseline sample Acquired. HR: 72 BPM. Physician arrived. Physician scrubbed in. Immediate Pre-Procedure Time Out. Correct Patient: Yes; Correct Procedure: Yes; Correct Site: Yes; Correct Patient Position: Yes; Correct Supplies: Yes; Dried Flammable Prep: Yes; Blood Products Available: N/A;. Lidocaine 1% infiltrated to the right radial. Arterial access obtained. A 5 swazi TIG catheter in over wire. Multiple views taken of left coronary artery. Catheter redirected to the RCA. Multiple views taken of right coronary artery. Catheter removed over the exchange wire. EDP Sample taken: LV 156/8,29; HR: 77 BPM; SpO2: 91%. EDP Sample taken: LV 131/6,26; HR: 74 BPM; SpO2: 95%. LV gram performed in ENRIQUEZ @ 10 mL/second for a total of 30 mL. EDP Sample taken: LV 140/17,34; HR: 73 BPM; SpO2: 96%. Pullback taken: LV 134/15,30; AO 128/94(106); Mean: 18mmHg, Peak to Peak: 9mmHg, SEP: 6sec/min; HR: 66 BPM; SpO2: 96%. Catheter removed over the exchange wire. Physician scrubbed out. A TR Band was successful obtaining hemostatsis at the Right Radial artery insertion site. Post Procedure: Pulses reassessed and unchanged. PERRLA. Strong, equal hand sectionizer bilaterally. No VTE prophylaxis required. Medication's Wasted: Lidocaine 1% = 49.8 mg. Medication's Wasted: Heparin = 1000 units. Total IV fluids: 25 mL. Post-op diagnosis: Non-Obstructive CAD. Complications: None. Estimated blood loss: 5mL-10mL. Responsiveness - Normal response to verbal stimuli; alert and oriented, PERRLA. Airway - Unaffected, no intervention required; spontaneous ventilation. Circulation: W/N/L, pulses unchanged. Nausea/Vomiting: No. Procedure completed. Patient transferred by stretcher to CPRU. Access Site Site: Right Radial artery Sheath Size: 6 Fr Hemostasis Method: TR Band Hemostasis Success: Successful Procedure Medications Start: 10:26 AM Stop: 10:26 AM Medication: Versed Amount: 1 mg Route: I.V. Start: 10:26 AM Stop: 10:26 AM Medication: Fentanyl Amount: 50 mcg Route: I.V. Start: 10:27 AM Stop: 10:27 AM Medication: Nitrogylcerin Amount: 200 mcg Route: I.A. Start: 10:28 AM Stop: 10:28 AM Medication: Heparin Amount: 5000 units Route: I.V. Start: 10:29 AM Stop: 10:29 AM Medication: Versed Amount: 1 mg Route: I.V. Start: 10:29 AM Stop: 10:29 AM Medication: Fentanyl Amount: 50 mcg Route: I.V. I, the attending physician, have reviewed and verified all procedure medications. Yes, all medications given per verbal order History/Risk Factors Hypertension: No Dyslipidemia: Yes Peripheral Arterial Disease (PAD): No Myocardial Infarction (RI): No Obesity: No Renal Disease: No Tobacco Use: Never Prior Interventions PCI: No CABG: No Valve Surgery: No Report Signatures Finalized by Jens Manriquez MD on 09/03/2022 05:34 PM
[2022-08-20] MEDS: diphenhydrAMINE 50 mg Capsule PO (09:23)
[2022-08-20] MEDS: aspirin 325 mg Tablet PO (09:23)
[2022-08-20 09:25] LABS: Basophils # 0.1 10^3/uL (0.0-0.1); Basophils % 0.7 %; Eosinophils # 0.5 10^3/uL (0.0-0.8); Eosinophils % 6.4 %; Hematocrit 44.1 % (42.0-52.0); Lymphocytes # 2.2 10^3/uL (0.8-4.8); Lymphocytes % 29.7 %; Mean Corpuscular Hemoglobin 29.8 pg (28.0-34.0); Mean Corpuscular Volume 87.7 fl (80-94); Mean Platelet Volume 10.3 fL (7.4-10.4); Monocytes # 0.8 10^3/uL (0.2-0.9); Neutrophils # 3.96 10^3/uL (1.8-7.7); Neutrophils % 52.9 %; Nucleated Red Blood Cells % 0 %; Platelet Count 258 10^3/cmm (130-400); Red Blood Count 5.03 10^6/uL (4.1-5.3); Red Cell Distribution Width 12.4 % (12.1-15.1); White Blood Count 7.5 10^3/uL (4.0-10.0)
[2022-08-20 09:41] LABS: Anion Gap 15.9 (5-19); Blood Urea Nitrogen 17 mg/dL (6-20); Calcium 9.5 mg/dL (8.5-10.5); Carbon Dioxide 23 mmol/L (22-29); Chloride 102 mmol/L (98-107); Glucose 108 mg/dL (65-115); Osmolality Calculated 286 mOsm/kg (285-295); Potassium 3.9 mmol/L (3.5-5.1); Sodium 137 mmol/L (136-145)
--- NOTE | 2022-08-20 10:20 | W.PM.OPSUD ---
Surgery/Procedure H&P Update DATE OF PROCEDURE: August 20, 2022 DATE H&P PERFORMED: 08/10/22 H&P UPDATE INFORMATION: I have reviewed H&P completed within last 30 days, I have examined patient prior to procedure and No changes to prior documentation PREOP DIAGNOSIS: Chest pain/ abnormal stress test PRIMARY INDICATION FOR PROCEDURE: Chest pain/ Abnormal stress test PLANNED PROCEDURE: Operation Date: 08/20/22 10:00 Proposed Procedures p Left Heart Cath 41118,R07.9,R94.39(Left) - Jens Manriquez M.D Possible percutaneous coronary intervention PATIENT REASSESSED PRIOR TO SEDATION, WITH NO CHANGE NOTED: Yes PHYSICAL EXAM: alert, oriented x 3, clear to auscultation bilaterally and regular rate & rhythm AIRWAY EVAL/ANESTHESIA PLAN: normal airway, ASA III, Local Anesthesia, Risks, benefits & alternatives of sedation and/or procedure discussed and Patient agrees to continue as planned ADDITIONAL INFORMATION: Moderate sedation
--- NOTE | 2022-08-20 11:03 | PC.NURSE ---
Received pt from medical lab director post diagnostic left heart cath. TR band on right wrist with distal pulses palpable. no bruising or hematoma noted. Pt complains of no pain. Pt and family at bedside educated on restrictions of right wrist and nurse will continue to educate throughout recovery. Pt placed on vital monitor and will be monitored per protocol. Plan is to dc after 3 hrs. Pt stated his understanding of pending discharge.
== END 2022-08-20 13:42 | disposition home or self-care (01) ==
PROVIDERS: PCP Nurse Practitioner; Visit Provider Internal Medicine
DX: R07.9 Chest pain, unspecified (principal); R94.39 Abnormal result of other cardiovascular function study; E78.5 Hyperlipidemia, unspecified; Z82.49 Family history of ischemic heart disease and other diseases of the circulatory system; Z87.891 Personal history of nicotine dependence; G47.30 Sleep apnea, unspecified
CPT/HCPCS: 36415; 80048; 85025; 93458; 96361; 96365; 99152; 99153; C1769; C1887; C1894; J1644; J2250; J3010; J3490; J7030; Q0163; Q9967

== ENCOUNTER → 2022-09-03 10:53 | Outpatient (BNVA) | payer OTHER, SELFPAY | PROVIDERS: PCP Nurse Practitioner; Visit Provider Nurse Practitioner Family | DX: I25.10 Atherosclerotic heart disease of native coronary artery without angina pectoris (principal); Z87.891 Personal history of nicotine dependence | CPT/HCPCS: 36415; 80048; 99214 ==

== ENCOUNTER 2022-09-25 06:00 | Outpatient (RCR) | payer OTHER, SELFPAY | END 2022-10-09 23:59 | disposition home or self-care (01) | LOC: SPT 06:00 | PROVIDERS: PCP Nurse Practitioner; Visit Provider Nurse Practitioner | DX: R26.2 Difficulty in walking, not elsewhere classified (principal) | CPT/HCPCS: 97110; 97112; 97161; 97530 ==

== ENCOUNTER → 2022-10-06 14:18 | Outpatient (BNVA) | payer OTHER, SELFPAY | PROVIDERS: PCP Nurse Practitioner; Visit Provider Specialist | DX: G43.711 Chronic migraine without aura, intractable, with status migrainosus (principal); R29.898 Other symptoms and signs involving the musculoskeletal system | CPT/HCPCS: 99214 ==

== ENCOUNTER 2022-10-10 06:00 | Outpatient (RCR) | payer OTHER, SELFPAY | END 2022-11-08 23:59 | disposition home or self-care (01) | LOC: SPT 06:00 | PROVIDERS: PCP Nurse Practitioner; Visit Provider Nurse Practitioner | DX: R26.2 Difficulty in walking, not elsewhere classified (principal) | CPT/HCPCS: 97110 ==

== ENCOUNTER 2022-11-09 06:00 | Outpatient (RCR) | payer OTHER, SELFPAY | END 2022-12-09 23:59 | disposition home or self-care (01) | LOC: SPT 06:00 | PROVIDERS: PCP Nurse Practitioner; Visit Provider Nurse Practitioner | DX: R26.89 Other abnormalities of gait and mobility (principal) | CPT/HCPCS: 97110 ==

== ENCOUNTER 2022-12-10 06:00 | Outpatient (RCR) | payer OTHER, SELFPAY | END 2023-01-01 23:59 | disposition home or self-care (01) | LOC: SPT 06:00 | PROVIDERS: PCP Nurse Practitioner; Visit Provider Nurse Practitioner | DX: R26.2 Difficulty in walking, not elsewhere classified (principal) | CPT/HCPCS: 97110 ==

== ENCOUNTER → 2023-01-06 10:42 | Outpatient (BNVA) | payer OTHER, SELFPAY | PROVIDERS: PCP Nurse Practitioner; Visit Provider Specialist | DX: G43.711 Chronic migraine without aura, intractable, with status migrainosus (principal); M51.9 Unspecified thoracic, thoracolumbar and lumbosacral intervertebral disc disorder; R53.1 Weakness | CPT/HCPCS: 99214 ==

== ENCOUNTER → 2023-02-10 08:17 | Outpatient (BNVA) | payer OTHER, SELFPAY | PROVIDERS: PCP Nurse Practitioner; Visit Provider Nurse Practitioner Family | DX: L91.8 Other hypertrophic disorders of the skin (principal); L90.5 Scar conditions and fibrosis of skin; L81.4 Other melanin hyperpigmentation; L57.8 Other skin changes due to chronic exposure to nonionizing radiation | CPT/HCPCS: 11200; 99203 ==

== ENCOUNTER → 2023-02-18 15:29 | Outpatient (BNVA) | payer OTHER, SELFPAY | PROVIDERS: PCP Nurse Practitioner; Visit Provider Internal Medicine | DX: E78.5 Hyperlipidemia, unspecified (principal); Z87.898 Personal history of other specified conditions | CPT/HCPCS: 99213 ==

== ENCOUNTER → 2023-03-10 08:02 | Outpatient (BNVA) | payer OTHER, SELFPAY | PROVIDERS: PCP Nurse Practitioner; Visit Provider Specialist | DX: G43.711 Chronic migraine without aura, intractable, with status migrainosus (principal); R29.898 Other symptoms and signs involving the musculoskeletal system | CPT/HCPCS: 99214 ==

== ENCOUNTER → 2023-05-05 10:21 | Outpatient (BNVA) | payer OTHER, SELFPAY | PROVIDERS: PCP Nurse Practitioner; Visit Provider Specialist | DX: G43.711 Chronic migraine without aura, intractable, with status migrainosus (principal); R29.898 Other symptoms and signs involving the musculoskeletal system | CPT/HCPCS: 99214 ==

== ENCOUNTER 2023-07-13 07:48 | Outpatient (CLI) | payer OTHER, SELFPAY ==
--- NOTE | 2023-07-13 08:03 | USR_ITS ---
PROCEDURE INFORMATION: Exam: US Abdomen, Limited; Right Upper Quadrant Exam date and time: 07/13/2023 8:08 AM Age: 37 years old Clinical indication: Abnormal findings; Abnormal lab test; Elevated liver enzymes; Additional info: Elevated lfts TECHNIQUE: Imaging protocol: Real time ultrasound of the abdomen with image documentation. Limited exam focused on the right upper quadrant. COMPARISON: US abdomen limited [id number] 04/27/2022 7:46 AM FINDINGS: Liver: Visualized portions of liver appear mildly heterogeneous, echogenic, suggesting diffuse fatty liver, hepatic steatosis with small region of relative sparing near gallbladder. No intrahepatic bile duct dilatation demonstrated of visualized portions of the liver. Right liver lobe measured at 17.97 cm length. Gallbladder: No gallstones, no wall thickening, and no pericholecystic fluid demonstrated visualized portions gallbladder. Negative sonographic Lombardo's sign. Biliary ducts: Common duct measured 2.3 mm across, within normal. No markedly dilated common duct demonstrated. Pancreas: Portions of pancreas not well visualized/demonstrated. No distinct focal lesions demonstrated of visualized portions of pancreas. Right kidney: Right kidney measured 11.33 cm length. No dilated renal collecting system and no perirenal fluid demonstrated of visualized portions right kidney. Aorta: Visualized portions abdominal aorta, IVC grossly unremarkable. Portal venous: Portal venous flow demonstrated as antegrade. Intraperitoneal space: No ascites demonstrated. US/US abdomen limited [id number] IMPRESSION: Visualized portions of liver appear mildly heterogeneous, echogenic, suggesting diffuse fatty liver, hepatic steatosis with small region of relative sparing near gallbladder.
== END 2023-07-13 07:49 | disposition home or self-care (01) ==
LOC: RAD 07:48
PROVIDERS: PCP Nurse Practitioner; Visit Provider Nurse Practitioner
DX: R79.89 Other specified abnormal findings of blood chemistry (principal); R74.8 Abnormal levels of other serum enzymes; K76.9 Liver disease, unspecified
CPT/HCPCS: 76705

== ENCOUNTER 2023-08-20 10:40 | Outpatient (CLI) | payer OTHER, SELFPAY ==
--- NOTE | 2023-08-20 10:48 | MR_ITS ---
WS: [id number] MRI THORACIC SPINE with and without contrast. HISTORY: Back pain. Change in function after fall. COMPARISON: No similar studies. Thoracic spine radiographs 01/19/2022 TECHNIQUE: Multiplanar sequences are performed in sagittal and axial planes. Postcontrast imaging Mul tiHance 20 mL IV. Mild straightening of the normal lumbar lordosis. No marrow edema or fracture. There is a very slight disc desiccation at T6-7, T7-8 and T8-9. T1-2: Normal. T2-3: Normal. T3-4: Normal. T4-5: Normal. T5-6: Small central disc protrusion contacts the ventral thecal sac. There is contact on the cord. T6-7: Normal. T7-8: Shallow RIGHT paracentral disc protrusion contacts the RIGHT lateral thecal sac. T8-9: Normal. T9-10: Mild bilateral facet arthritis. T10-11: Mild bilateral facet arthritis. T11-12: Normal. Postcontrast images are negative for discitis or osteomyelitis. No enhancing masses. IMPRESSION: 1. Mild straightening of the normal thoracic kyphosis. 2. No acute or remote thoracic spine fracture. 3. Small central disc protrusion at T5-6 contacts the ventral thoracic cord but no stenosis. 4. Shallow RIGHT paracentral disc protrusion at T7-8 contacts and slightly deforms the RIGHT lateral thecal sac. 5. No enhancing masses. No discitis or osteomyelitis.
[2023-08-20] MEDS: gadobenate dimeglumine 20 mL vial IV (12:04)
== END 2023-08-20 10:41 | disposition home or self-care (01) ==
LOC: RAD 10:41
PROVIDERS: PCP Nurse Practitioner; Visit Provider Nurse Practitioner
DX: R68.89 Other general symptoms and signs (principal); W19.XXXA Unspecified fall, initial encounter; M40.204 Unspecified kyphosis, thoracic region; M51.24 Other intervertebral disc displacement, thoracic region
CPT/HCPCS: 72157; A9577

== ENCOUNTER → 2024-02-17 12:54 | Outpatient (BNVA) | payer OTHER, SELFPAY | PROVIDERS: PCP Nurse Practitioner; Visit Provider Internal Medicine | DX: R07.9 Chest pain, unspecified (principal); E78.5 Hyperlipidemia, unspecified | CPT/HCPCS: 99214 ==

== ENCOUNTER 2024-03-30 07:01 | Outpatient (CLI) | payer OTHER, SELFPAY ==
--- NOTE | 2024-03-30 07:14 | USR_ITS ---
PROCEDURE INFORMATION: Exam: US Abdomen; Limited Exam date and time: 03/30/2024 7:39 AM Age: 38 years old Clinical indication: Abnormal findings; Abnormal lab test; Elevated liver enzymes TECHNIQUE: Imaging protocol: Real time ultrasound of the abdomen with image documentation. Limited exam focused on the region of clinical interest. COMPARISON: US abdomen limited [id number] 07/13/2023 8:08 AM FINDINGS: Liver: Increased echotexture of the liver. Loss of normal portal triad fat. Biliary ducts: No biliary ductal dilation. Pancreas: Cursory view of the pancreas appear unremarkable perhaps slight increase in echogenicity. Right kidney: Cursory view of the right kidney appear unremarkable. Aorta: Cursory view of the aorta appears normal. Inferior vena cava: Cursory view of the IVC appear normal. US/US abdomen limited [id number] IMPRESSION: 1. Diffuse hepatic steatosis with sparing at the gallbladder fossa. 2. Cursory reviews of the pancreas reveal perhaps mildly increased echogenicity which can be seen in pancreatitis. Correlate clinically.
== END 2024-03-30 07:02 | disposition home or self-care (01) ==
LOC: RAD 07:02
PROVIDERS: PCP Nurse Practitioner; Visit Provider Nurse Practitioner
DX: K76.0 Fatty (change of) liver, not elsewhere classified (principal)
CPT/HCPCS: 76705

== ENCOUNTER 2024-08-17 10:58 | Emergency (ER) | payer OTHER, SELFPAY ==
[2024-08-17 11:02] VITALS: BP 175/76; PULSE 84; RESP 18; TEMP 36.7; O2SAT 98; BMI 38.0
[2024-08-17 12:18] LABS: Basophils % 0.6 %; Eosinophils # 0.5 10^3/uL (0.0-0.8); Eosinophils % 7.7 %; Hematocrit 43.9 % (37-53); Lymphocytes # 2.2 10^3/uL (0.8-4.8); Lymphocytes % 34.4 %; Mean Corpuscular HGB Conc 33.9 g/dL (30-55); Mean Corpuscular Hemoglobin 29.9 pg (27-33); Mean Corpuscular Volume 88.2 fl (82-101); Mean Platelet Volume 10.6 fL (7.4-10.4); Monocytes # 0.6 10^3/uL (0.2-0.9); Monocytes % 8.8 %; Neutrophils # 3.14 10^3/uL (1.8-7.7); Neutrophils % 48.2 %; Nucleated Red Blood Cells % 0 %; Platelet Count 226 10^3/cmm (157-399); Red Blood Count 4.98 10^6/uL (3.85-5.65); Red Cell Distribution Width 12.4 % (12.1-15.1); White Blood Count 6.51 10^3/uL (3.29-11.43)
[2024-08-17 12:36] LABS: Alanine Aminotransferase 65 U/L (0-41); Albumin Level 4.4 g/dL (3.5-5.2); Alkaline Phosphatase 77 U/L (40-130); Anion Gap 16.4 (5-19); Aspartate Amino Transferase 34 U/L (0-40); Blood Urea Nitrogen 12 mg/dL (6-20); Calcium 9.4 mg/dL (8.5-10.5); Carbon Dioxide 24 mmol/L (22-29); Chloride 103 mmol/L (98-107); Creatinine Clr Calc Pharmacy 149.4906; Globulin 2.9 g/dL (1.3-4.6); Glomerular Filtration Rate 126.9 mL/min (90-130); Glucose 103 mg/dL (65-115); Lipase 23 U/L (13-60); Osmolality Calculated 288 mOsm/kg (285-295); Potassium 4.4 mmol/L (3.5-5.1); Sodium 139 mmol/L (136-145); Total Bilirubin 0.2 mg/dL (0.15-1.2); Total Protein 7.3 g/dL (6.6-8.7)
[2024-08-17 13:49] VITALS: BP 126/73; PULSE 78; O2SAT 98
--- NOTE | 2024-08-17 13:53 | CT_ITS ---
WS: [id number] CT ABDOMEN AND PELVIS WITH CONTRAST HISTORY: luq/flank pain TECHNIQUE: Imaging performed of the abdomen and pelvis with IV contrast. Single phase imaging of the abdomen. Coronal and sagittal reformats are submitted. All CT scans at [facility] use at least one of these dose optimization techniques: automated exposure control; mA and/or kV adjustment per patient size (includes targeted exams where dose is matched to clinical indication); or iterative reconstruction. IV CONTRAST: Omnipaque 350; 100 mL IV. Oral contrast: No DLP: 546.43 mGy.cm COMPARISON: 09/28/2015 Lower thorax: Lung bases are clear. Heart is normal size. No hiatal hernia. Liver/biliary system: Normal size with no intrahepatic dilatation. Gallbladder: Normal. No gallstones or wall thickening. No pericholecystic fluid. Pancreas: Normal size pancreas and pancreatic duct. No adjacent inflammation. Spleen: Normal size spleen. No mass or infarct. Adrenal glands: Normal. Right kidney: Normal. Left kidney: Normal. Aorta: Mild atherosclerosis with no aneurysm. Lymphadenopathy: None. Free fluid: None. GI tract: No small bowel obstruction. No evidence for appendicitis. No colitis. Abdominal wall: Ventral abdominal wall hernia contains fat only. Pelvis: No free fluid or adenopathy within the pelvis. Bones: Unremarkable. CT/CT abdomen pelvis w con* [id number] IMPRESSION: 1. No acute abdominopelvic abnormalities. 2. No evidence for GI tract obstruction or diverticulitis. 3. No renal obstruction. 4. No evidence for appendicitis.
--- NOTE | 2024-08-17 13:54 | W.ED.ABDPA2 ---
HPI - Abdominal Pain General: Chief Complaint: Abdominal Pain Stated Complaint: abdominal pain left side Time Seen by Provider: 08/17/24 13:38 Source: patient Mode of arrival: ambulatory Limitations: no limitations History of Present Illness: Patient is a 38-year-old male presents the emergency department complaining of left upper quadrant and flank pain for the past day. Patient states pain came on suddenly while he was lying in bed last night, has been constant since onset. Describes it as a sharp 10/10 pain. He does have a history of kidney stones but states that this feels different. Initially he was seen at the [facility], told he had x-rays done and was told my spleen is about to go. Was then referred to imaging here for a CT, but they told him to come to the ED for evaluation. He is not reporting any other symptoms. He has never had this pain before. Denies any previous history with this plan. No recent trauma. Specifically he is not reporting any fever, chest pain, shortness of breath, nausea/vomiting/diarrhea, or syncopal episodes. He has not taken anything for the pain. During my time of examination his vitals are within normal limits. Past medical history of CAD and PTSD. Last normal bowel movement was this morning. MD elicited complaint: abdominal pain Onset (ago): day(s) Pain Consistency: constant Location: LUQ and L flank Severity: severe Pain scale (0-10): 10 Quality: sharp Radiation: none Migration to: no migration Exacerbating factors: nothing Relieving factors: nothing Associated Symptoms: Denies bloating, change in stool character, chills, constipation, diarrhea, dysuria, fever(s), hematochezia, nausea and vomiting Related Data Home Medications ?Medication ?Instructions ?Recorded ?Confirmed atorvastatin 80 mg tablet 40 mg PO DAILY 04/09/22 02/17/24 cholecalciferol (vitamin D3) 50 100 mcg PO DAILY supplement 04/09/22 02/17/24 mcg (2,000 unit) capsule duloxetine 60 mg capsule,delayed 60 mg PO ONCE 01/06/23 02/17/24 release pregabalin 300 mg capsule (Lyrica) 300 mg PO TID 02/17/24 02/17/24 Previous Rx's ?Medication ?Instructions ?Recorded nitroglycerin 0.4 mg sublingual 0.4 mg sublingual Q5M PRN chest 08/20/22 tablet pain #30 tabs miscellaneous medical supply #1 ea 09/03/22 (Blood Pressure Cuff) Allergies Allergy/AdvReac Type Severity Reaction Status Date / Time cefaclor (From [facility]) Allergy Unknown Verified 08/17/24 11:05 naproxen Allergy Unknown Verified 08/17/24 11:05 Review of Systems General: Reports: 10 or more systems reviewed and unremarkable except in HPI and below Const: Denies: fever(s), chills, change in appetite, change in weight or diaphoresis ENMT: Denies: throat pain or hoarseness Card: Denies: chest pain, palpitations or lightheadedness Resp: Denies: dyspnea, productive cough or wheezing GI: Reports: abdominal pain; Denies: nausea, vomiting, diarrhea, constipation, bloating, change in stool character or hematochezia : Reports: flank pain; Denies: difficulty urinating, dysuria, urinary frequency or urinary urgency Musc: Denies: neck pain or back pain Skin/Breast: Denies: rash or new lesions Neuro: Denies: headache(s) or dizziness PFSH ED PFSH: Medical History Atherosclerosis of coronary artery Sleep apnea Hypoglycemia Migraine PTSD (post-traumatic stress disorder) Hearing loss Surgical History No pertinent past surgical history Family History Other CAD (coronary artery disease) Cancer Chronic kidney disease (CKD) Diabetes Social History Smoking and tobacco/nicotine status: current every day tobacco/nicotine user (chewing tobacco) Physical Exam Const: COMMON NORMALS: no acute distress, average body habitus, patient oriented x3, no limitations, healthy appearing, alert and well nourished GENERAL APPEARANCE: cooperative ORIENTATION/CONSCIOUSNESS: Yes awake HENMT: COMMON NORMALS: normocephalic, atraumatic, hearing grossly normal bilaterally, external ears normal, Normal external nose present, Normal nasal mucous membranes and turbinates present and moist oral mucous membranes HEAD & SCALP: normocephalic and atraumatic NOSE: Normal external nose present and Normal nasal mucous membranes and turbinates present EXTERNAL EAR: Yes external ears normal Eye: COMMON NORMALS: Equal, round and reactive pupils present, EOMs intact bilaterally, conjunctivae normal and normal visual angulo by confrontation CONJUNCTIVA: Yes conjunctivae normal PUPIL: Yes Equal, round and reactive pupils present Neck/C-Spine: COMMON NORMALS: full ROM, supple, no meningeal signs and no JVD Resp: COMMON NORMALS: normal respiratory effort, No retractions, No use of accessory muscles and clear to auscultation bilaterally AUSCULTATION: clear to auscultation bilaterally, no crackles, no rales, no rhonchi and no wheezes Cardio: COMMON NORMALS: no JVD, regular rate, regular rhythm, S1 normal heart sound present, S2 normal heart sound present, No gallops present (Cardio), No clicks present (Cardio), No murmurs present (Cardio), No rub (Cardio) and Peripheral pulses 2+ throughout RATE: regular rate RHYTHM: regular rhythm HEART SOUNDS: S1 normal heart sound present and S2 normal heart sound present PERIPHERAL PULSES: Peripheral pulses 2+ throughout GI: COMMON NORMALS: Normal to inspection, nondistended, normoactive bowel sounds present and no masses INSPECTION: Yes central obesity AUSCULTATION: Yes normoactive bowel sounds PALPATION: No Guarding due to palpation present (GI) and No Rigid due to palpation RECTAL EXAM: Yes deferred OTHER: Easily reducible left upper quadrant tenderness to palpation, as well as tenderness to palpation to the left flank. Edge of spleen not palpable, though patient does have central obesity that could be limiting this exam. No bruising to the abdomen. : COMMON NORMALS: Yes no CVA tenderness BLADDER/KIDNEY EXAM: Yes no CVA tenderness Back/Pelvis: COMMON NORMALS: no CVA tenderness Extremity: COMMON NORMALS: normal to inspection and full ROM Neuro: COMMON NORMALS: patient oriented x3, moves all extremities, no focal motor deficits and no sensory deficits noted SENSORIUM/ORIENTATION: Yes alert MENINGEAL SIGNS: Yes no meningeal signs Psych: COMMON NORMALS: mental status grossly normal, cooperative and speech normal SPEECH: Yes normal speech Skin: COMMON NORMALS: no rashes or lesions noted GENERAL SKIN EXAM: no rashes or lesions noted Course Vital Signs: Vital signs: Vital Signs Temperature 98.0 F 08/17/24 11:02 Pulse Rate 78 08/17/24 13:49 Respiratory Rate 17 08/17/24 14:02 Blood Pressure 126/73 08/17/24 13:49 Pulse Oximetry 98 08/17/24 14:02 Oxygen Delivery Me thod Room Air 08/17/24 13:49 MDM - Abdominal Pain Medical Decision Making This patient was sent by the DC, where they had stated he had signs of splenic complications by x-ray. Patient's vitals have been stable throughout ED stay, he was in the waiting room for 3 to 4 hours prior to being seen and did not report any worsening of pain or other symptoms. His only complaint was abdominal pain to the left upper quadrant area, though on exam he was more tender to the left flank/left lateral rib cage. He did not report any recent illness or sickness, however does note that he has been coughing prior to his pain. All of his lab work was completely normal, this included CBC, CMP, and lipase. His urinalysis did not show any blood that would make me think of atypical presentation of nephrolithiasis, as he did have a history of this. With a CT scan, there was no acute abnormalities reported, specifically noting his spleen appeared normal as well as the left lower lung region. There were no rib fractures or other surgical abnormalities noted. With his pain being easily reproducible, and completely normal lab work and imaging, this diagnosis favors an abdominal wall strain versus costochondritis. He did not report much relief after morphine, was noted to only be in pain with coughing or laughing which again favors musculoskeletal etiology. Thus we will give him dose of steroid here as well as Toradol, have him begin NSAIDs at home and monitor his condition closely for any worsening. He and family in the room are comfortable with this plan at this time, expressing relief that it is not his spleen. Strict return precautions given, patient verbalized understanding. Lab Data 08/17/24 11:52 08/17/24 11:52 Labs/Radiology: Radiology Impressions Abdomen/Pelvis CT 08/17/24 13:53 IMPRESSION: 1. No acute abdominopelvic abnormalities. 2. No evidence for GI tract obstruction or diverticulitis. 3. No renal obstruction. 4. No evidence for appendicitis. Laboratory Results WBC 6.51 10^3/uL (3.29-11.43) 08/17/24 11:52 RBC 4.98 10^6/uL (3.85-5.65) 08/17/24 11:52 Hgb 14.90 g/dL (11.27-16.99) 08/17/24 11:52 Hct 43.9 % (37-53) 08/17/24 11:52 MCV 88.2 fl (82-101) 08/17/24 11:52 MCH 29.9 pg (27-33) 08/17/24 11:52 MCHC 33.9 g/dL (30-55) 08/17/24 11:52 RDW 12.4 % (12.1-15.1) 08/17/24 11:52 Plt Count 226 10^3/cmm (157-399) 08/17/24 11:52 MPV 10.6 fL (7.4-10.4) H 08/17/24 11:52 Neut % (Auto) 48.2 % 08/17/24 11:52 Lymph % (Auto) 34.4 % 08/17/24 11:52 [place] % (Auto) 8.8 % 08/17/24 11:52 Eos % (Auto) 7.7 % 08/17/24 11:52 Baso % (Auto) 0.6 % 08/17/24 11:52 Neut # (Auto) 3.14 10^3/uL (1.8-7.7) 08/17/24 11:52 Lymph # (Auto) 2.2 10^3/uL (0.8-4.8) 08/17/24 11:52 [place] # (Auto) 0.6 10^3/uL (0.2-0.9) 08/17/24 11:52 Eos # (Auto) 0.5 10^3/uL (0.0-0.8) 08/17/24 11:52 Baso # (Auto) 0.0 10^3/uL (0.0-0.1) 08/17/24 11:52 Nucleated RBC % (auto) 0 % 08/17/24 11:52 Nucleated RBCs # 0.0 /100WBC 08/17/24 11:52 Sodium 139 mmol/L (136-145) 08/17/24 11:52 Potassium 4.4 mmol/L (3.5-5.1) 08/17/24 11:52 Chloride 103 mmol/L (98-107) 08/17/24 11:52 Carbon Dioxide 24 mmol/L (22-29) 08/17/24 11:52 Anion Gap 16.4 (5-19) 08/17/24 11:52 BUN 12 mg/dL (6-20) 08/17/24 11:52 Creatinine 0.7 mg/dL (0.7-1.2) 08/17/24 11:52 GFR Calculation 126.9 mL/min (90-130) 08/17/24 11:52 Glucose 103 mg/dL (65-115) 08/17/24 11:52 Calculated Osmolality 288 mOsm/kg (285-295) 08/17/24 11:52 Calcium 9.4 mg/dL (8.5-10.5) 08/17/24 11:52 Total Bilirubin 0.2 mg/dL (0.15-1.2) 08/17/24 11:52 AST 34 U/L (0-40) 08/17/24 11:52 ALT 65 U/L (0-41) H 08/17/24 11:52 Alkaline Phosphatase 77 U/L (40-130) 08/17/24 11:52 Total Protein 7.3 g/dL (6.6-8.7) 08/17/24 11:52 Albumin 4.4 g/dL (3.5-5.2) 08/17/24 11:52 Globulin 2.9 g/dL (1.3-4.6) 08/17/24 11:52 Lipase 23 U/L (13-60) 08/17/24 11:52 Urine Color Yellow (Yellow) 08/17/24 11:14 Urine Appearance Clear (CLEAR) 08/17/24 11:14 Urine pH 5.5 (5-7) 08/17/24 11:14 Ur Specific [place] 1.019 (1.005-1.030) 08/17/24 11:14 Urine Protein Negative (Negative) 08/17/24 11:14 Urine Glucose (UA) Negative (Normal) 08/17/24 11:14 Urine Ketones Negative (Negative) 08/17/24 11:14 Urine Blood Negative (Negative) 08/17/24 11:14 Urine Nitrate Negative (Negative) 08/17/24 11:14 Urine Bilirubin Negative (Negative) 08/17/24 11:14 Urine Urobilinogen 0.2 mg/dL (Negative) 08/17/24 11:14 Ur Leukocyte Esterase Negative (Negative) 08/17/24 11:14 Urine RBC 0-2 /hpf (0-2) 08/17/24 11:14 Urine WBC 0-5 /hpf (0-5) 08/17/24 11:14 Ur Squamous Epith Cells 0-5 /hpf (0-5) 08/17/24 11:14 Amorphous Sediment Not Reportable 08/17/24 11:14 Urine Bacteria None seen /hpf (NONE) 08/17/24 11:14 Hyaline Casts 0.40 /lpf 08/17/24 11:14 All radiology interpretation(s) finalized by discharge Discharge Plan Discharge Patient Disposition: Home Clinical Impression: Abdominal pain Qualifiers: Abdominal location: left upper quadrant Qualified Code(s): R10.12 - Left upper quadrant pain Condition: Stable Prescriptions: No Action cholecalciferol (vitamin D3) 50 mcg (2,000 unit) capsule 100 mcg PO DAILY atorvastatin 80 mg tablet 40 mg PO DAILY (DME) Blood Pressure Cuff Misc See Rx Instructions .Route Qty: 1 0RF Rx Instructions: As directed duloxetine 60 mg capsule,delayed release(DR/EC) 60 mg PO ONCE pregabalin [Lyrica] 300 mg capsule 300 mg PO TID nitroglycerin 0.4 mg tablet, sublingual 0.4 mg sublingual Q5M PRN (Reason: chest pain) Qty: 30 0RF Rx Instructions: do not exceed 3 doses per episode Discharge Orders: Discharge ED (Routine); Ordered 08/17/24 Ordered By: Michael Unger Referrals: Cindy Winchester FNP [Primary Care Provider] - Patient Instructions: Costochondritis (ED), Abdominal Pain (ED) Activity Restrictions/Additional Instructions: Ibuprofen for pain. Pulmonary hygiene, meaning continue to take deep breaths as your pain starts to improve as to avoid any complications such as pneumonia. Your lab work and imaging today were normal, however monitor your condition closely and return with any significant worsening of pain or if you develop any other symptoms. [facility]. I hope you get feeling better soon. Print Language: Singaporean Coding Level of Care Code ED Sounding Device Operator for Rick Cardenas
[2024-08-17 14:02] VITALS: RESP 17; O2SAT 98
[2024-08-17] MEDS: morphine 4 mg/mL SDV 1 mL IVP (14:02)
[2024-08-17 14:03] LABS: Bilirubin Urine Negative (Negative); Blood Urine Negative (Negative); Glucose Urine UA Negative (Normal); Ketones Urine Negative (Negative); Leukocyte Esterase Urine Negative (Negative); Nitrate Urine Negative (Negative); Protein Urine Negative (Negative); Specific Gravity, Urine 1.019 (1.005-1.030); Urine Appearance Clear (CLEAR); Urine Color Yellow (Yellow); Urobilinogen Urine 0.2 mg/dL (Negative); pH Urine 5.5 (5-7)
[2024-08-17 14:08] LABS: Add Urine Microscopic? YES; Bacteria Urine None Seen /hpf; RBC Urine 0-2 /hpf (0-2); Squamous Epithelial Cell Urine 0-5 /hpf (0-5); WBC Urine 0-5 /hpf (0-5)
--- NOTE | 2024-08-17 14:12 | PC.PHAR ---
[facility] 08/17/24 2:13pm
[2024-08-17] MEDS: iohexol 350 mg/mL 500 mL Btl (per mL) IV (14:20)
--- NOTE | 2024-08-17 14:23 | PC.PHAR ---
[facility] is [facility] 08/17/24 2:15pm
[2024-08-17] MEDS: dexamethasone 10 mg/mL INJ IVP (15:08)
[2024-08-17] MEDS: ketorolac 30 mg/mL INJ IVP (15:08)
[2024-08-17 15:15] VITALS: BP 124/86; PULSE 65; O2SAT 94
== END 2024-08-17 15:16 | disposition home or self-care (01) ==
PROVIDERS: Emergency Medicine; Emergency Provider Physician Assistant; PCP Nurse Practitioner
DX: R10.12 Left upper quadrant pain (principal); F17.220 Nicotine dependence, chewing tobacco, uncomplicated; I25.10 Atherosclerotic heart disease of native coronary artery without angina pectoris
CPT/HCPCS: 36415; 74177; 80053; 81001; 83690; 85025; 96374; 96375; 99285; J1100; J1885; J2270

== ENCOUNTER → 2025-04-04 14:05 | Outpatient (BNVA) | payer OTHER, SELFPAY | PROVIDERS: PCP Nurse Practitioner; Visit Provider Internal Medicine | DX: R07.89 Other chest pain (principal); E78.5 Hyperlipidemia, unspecified; F17.200 Nicotine dependence, unspecified, uncomplicated | CPT/HCPCS: 99213 ==

== ENCOUNTER 2025-04-04 15:32 | Emergency (ER) | payer OTHER, SELFPAY ==
--- OUTSIDE RECORDS SUMMARY | 2025-04-04 15:37 | XMS_ITS | Clinical Summary ---
Author Organization [facility] Address 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 Name Role Phone Mtnv, External Provider Primary Care Provider Un available Allergies Active Allergy Reactions Criticality Noted Date Comments Allerg Xt-Tree Poll-Elm, [place] Unknown 08/18/2022 Blueberry Rash Medium 09/11/2018 Ceclor Cd Anaphylaxis High 01/10/2011 Gabapentin Rash Medium 08/06/2020 Influenza Virus Vaccine, Specific Unknown 08/06/2020 Naproxen Rash Medium 09/11/2018 Nitro Anaphylaxis High 01/10/2011 Peanut Anaphylaxis High 08/21/2022 Reaction: Anaphylaxis, Tizanidine Nausea and Vomiting Low 04/17/2019 Tramadol Unknown 08/18/2022 Medications Cholecalciferol, Vitamin D3, 50 mcg (2,000 unit) Capsule 1 Tablet. Active atorvastatin (LIPITOR) 80 mg tablet Take 40 mg by mouth daily. 02/12/2022 Active divalproex (Depakote ER) 500 mg Extended Release 24 hour tabletIndication s:Intractable migraine without aura and without status migrainosus Take 3 Tablets (1,500 mg) by mouth daily. 90 Tablet 6 12/14/2024 Active ubrogepant (Ubrelvy) 100 mg tabletIndication s:Intractable migraine without aura and without status migrainosus 1 po at onset of migraine, may repeat once in 2 hrs. 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 Schafer MRI 06/2020 Right T8-T9 disc protrusion, smaller at T6-T7 also on the right. No spinal canal compromise or cord signal alteration. Back muscle spasm 11/29/2019 Lumbar back pain 11/29/2019 Numbness and tingling of right arm 11/29/2019 PTSD (post-traumatic stress disorder) 11/29/2019 Overview (08/21/2022): [facility] Last Assessment & Plan: Continues with counseling, no medication Sleep apnea 04/17/2019 Encounters Date Type Department Care Team Description 02/27/2025 External Device Data ST[facility] ABSTRACTION Provider, Abstract from Last 3 Months Social History Tobacco Use Types Packs/Day Years Used Date Smoking Tobacco: Every Day Cigarettes 0.5 5 Smokeless Tobacco: Current Chew Tobacco Cessation:Ready to Q uit: Not Asked; Counseling Given: Not Answered Alcohol Use Standard Drinks/Week Comments Yes 0 (1 standard drink = 0.6 oz pur e alcohol) occ Sex and Gender Information Value Date Recorded Sex Assigned at Not on file Legal Sex Male 8:54 AM [employer] Gender Identity Not on file Sexual Orientation Not on file Last Filed Vital Signs Vital Sign Reading Time Taken Comments Blood Pressure 146/85 12/14/2024 2:54 PM CDT Pulse 97 12/14/2024 2:54 PM CDT Temperature 37 C (98.6 F) 12/14/2024 2:54 PM CDT Respiratory Rate 16 12/14/2024 2:54 PM CDT Oxygen Saturation 97% 12/14/2024 2:54 PM CDT Inhaled Oxygen Concentration - - Weight 95.7 kg (211 lb) 12/14/2024 2:54 PM CDT Height 160 cm (5' 3 ) 12/14/2024 2:54 PM CDT Body Mass Index 37.38 12/14/2024 2:54 PM CDT Plan of Treatment Upcoming Encounters Date Type Department Care Team (Late st Contact Info) Description 04/05/2025 4:45 PM CDT Appointment [facility] Neurology [facility] [address] [place] [address] Tayo Urrutia MD [address] [place] [id number] Health Maintenance Due Date Last Done Comments Pre-Diabetes and Diabetes Screening 1986 HPV VACCINES (1 - 3-dose SCD M series) 2013 INFLUENZA VACCINE (#1) 2025 05/01/2008 DTAP/TDAP/TD VACCINES (4 - T d or Tdap) 06/10/2033 06/10/2023, 04/03/2019, 12/27/2006 HEPATITIS B VACCINES Completed 04/15/2000, 11/11/1999, 10/08/1999 Insurance [place] CCN [employer] Care Teams Casino Games Dealer Relationship Specialty Start Date End Date Mtnv, External Provider [address] [facility] [place] [address] PCP - General Family Practice 04/03/22
[2025-04-04 15:50] VITALS: BP 138/89; PULSE 87; TEMP 36.9; O2SAT 96
--- NOTE | 2025-04-04 16:04 | ED_ITS ---
HPI - Abdominal Pain 2 General: Chief Complaint: Abdominal Pain Stated Complaint: DR Manning CT on ABD Pain in Upper ABD Time Seen by Provider: 04/04/25 16:03 History of Present Illness: 39-year-old man presents emergency room with abdominal tightness and pain. He has been having upper abdominal pain and feels like his abdomen is more distended. He went to see his PCP at the [facility] and they sent him to the emergency room for imaging. No nausea or vomiting. Normal stools. Related Data Home Medications ?Medication ?Instructions ?Recorded ?Confirmed atorvastatin 80 mg tablet 40 mg PO QPM 04/09/22 cholecalciferol (vitamin D3) 50 100 mcg PO DAILY suppl ement 04/09/22 04/04/25 mcg (2,000 unit) capsule albuterol sulfate 90 mcg/actuation 1 puff inhalation Q ID PRN 08/17/24 04/04/25 aerosol inhaler Shortness Of Breath dicyclomine 10 mg capsule 10 mg PO TID PRN ibs 5 04/04/25 pregabalin 300 mg capsule 300 mg PO BID 08/17/2404/04 sertraline 100 mg tablet 100 mg PO QAM 08/17/2404/04 divalproex 500 mg tablet,extended 1,500 mg PO DAILY 04/04/25 release 24 hr Previous Rx's ?Medication ?Instructions ?Recorded nitroglycerin 0.4 mg sublingual 0.4 mg sublingual Q5M PRN chest 08/20/22 tablet pain #30 tabs miscellaneous medical supply #1 ea 09/03/22 (Blood Pressure Cuff) ciprofloxacin HCl 500 mg tablet 500 mg PO BID 7 days # 14 tabs 04/04/25 metronidazole 500 mg tablet 500 mg PO Q8H 7 days #21 t abs 04/04/25 Allergies Allergy/AdvReac Type Severity Reaction Status Date / Time cefaclor (From [facility]) Allergy Unknown Verified 04/04/25 14:10 naproxen Allergy Unknown Verified 04/04/25 14:10 Review of Systems 2 Narrative: Constitutional symptoms: Negative except as documented in HPI. Skin symptoms: Negative except as documented in HPI. Eye symptoms: Negative except as documented in HPI. ENMT symptoms: Negative except as documented in HPI. Respiratory symptoms: Negative except as documented in HPI. Cardiovascular symptoms: Negative except as documented in HPI. Gastrointestinal symptoms: Negative except as documented in HPI. Genitourinary symptoms: Negative except as documented in HPI. Musculoskeletal symptoms: Negative except as documented in HPI. Neurologic symptoms: Negative except as documented in HPI. Psychiatric symptoms: Negative except as documented in HPI. Endocrine symptoms: Negative except as documented in HPI. PFSH ED 2 PFSH: Medical History (Updated 04/04/25 @ 17:29 by Diane Lynn MD) Atherosclerosis of coronary artery Sleep apnea Hypoglycemia Migraine PTSD (post-traumatic stress disorder) Hearing loss Surgical History No pertinent past surgical history Family History Other CAD (coronary artery disease) Cancer Chronic kidney disease (CKD) Diabetes Social History Smoking and tobacco/nicotine status: current every day tobacco/nicotine user Physical Exam 2 Narrative: EXAM NARRATIVE: General: Alert, no acute distress. Skin: Warm, dry. Head: Normocephalic, atraumatic. Neck: Supple, trachea midline. Eye: Extraocular movements are intact. Ears, nose, mouth and throat: mucosa moist. Cardiovascular: Regular, Normal peripheral perfusion. Respiratory: Lungs are clear to auscultation, respirations are non-labored, breath sounds are equal, Symmetrical chest wall expansion. Gastrointestinal: Abdomen is soft and maybe a little distended. Some tenderness diffusely and nonfocally in the upper abdomen. Musculoskeletal: Normal ROM, no deformity. Neurological: Alert and oriented, No focal neurological deficit observed. Psychiatric: Cooperative, appropriate mood & affect. Course 2 Vital Signs: Vital signs: Vital Signs Temperature 98.4 F 04/04/25 15:50 Pulse Rate 97 04/04/25 17:42 Respiratory Rate 17 04/04/25 17:42 Blood Pressure 129/87 04/04/25 17:42 Pulse Oximetry 99 04/04/25 17:42 Oxygen Delivery Me thod Room Air 04/04/25 16:45 MDM - Abdominal Pain Medical Decision Making Differential diagnosis for patient presenting with right upper quadrant abdominal pain including but not limited to and based on the above HPI, review of systems and physical exam: Cholelithiasis or cholecystitis. Hepatitis. Diverticulitis. Constipation. Ureterolithiasis. Urinary tract infection. Appendicitis. colitis. small bowel obstruction. crohn's flare. pancreatitis. gastritis. peptic ulcer. Aortic disection. Workup including imaging and lab work replaced based on the above differential, history and exam to evaluate differential diagnosis Lab Review: Laboratory results were reviewed and interpreted by myself the emergency room physician. No leukocytosis. No anemia. No renal failure. Urinalysis is negative for infection. Liver enzymes are mildly elevated as they have been in the past. CT of the abdomen pelvis with contrast: Mild colonic wall thickening along the transverse and descending colon. Could be a colitis and this is similar to where his pain is so I am going to treat him for colitis. This was reviewed and interpreted by myself the emergency room physician. I also reviewed the radiology report. I reviewed the patient's medical record. Reexamination: Patient remained stable. No increased work of breathing. No altered mental status. No focal motor deficits. Assessment and plan: Abdominal pain Colitis - Discharged home - Discussed plan with patient. Answered any questions. - Evaluation and treatment of this problem were appropriate in the emergency setting. Lab Data 04/04/25 16:12 04/04/25 16:12 Labs/Radiology: Radiology Impressions Abdomen/Pelvis CT 04/04/25 16:42 IMPRESSION: 1. Mild colonic wall thickening along the transverse and descending colon is likely exaggerated by underdistention. Mild colitis not excluded in the correct clinical setting. 2. Mild hepatomegaly with hepatic steatosis. Laboratory Results WBC 8.98 10^3/uL (3.29-11.43) 04/04/25 16:12 RBC 5.11 10^6/uL (3.85-5.65) 04/04/25 16:12 Hgb 15.40 g/dL (11.27-16.99) 04/04/25 16:12 Hct 45.1 % (37-53) 04/04/25 16:12 MCV 88.3 fl (82-101) 04/04/25 16:12 MCH 30.1 pg (27-33) 04/04/25 16:12 MCHC 34.1 g/dL (30-55) 04/04/25 16:12 RDW 12.6 % (12.1-15.1) 04/04/25 16:12 Plt Count 257 10^3/cmm (157-399) 04/04/25 16:12 MPV 10.2 fL (7.4-10.4) 04/04/25 16:12 Neut % (Auto) 60.3 % 04/04/25 16:12 Lymph % (Auto) 24.8 % 04/04/25 16:12 [place] % (Auto) 8.4 % 04/04/25 16:12 Eos % (Auto) 5.3 % 04/04/25 16:12 Baso % (Auto) 0.9 % 04/04/25 16:12 Neut # (Auto) 5.41 10^3/uL (1.8-7.7) 04/04/25 16:12 Lymph # (Auto) 2.2 10^3/uL (0.8-4.8) 04/04/25 16:12 [place] # (Auto) 0.8 10^3/uL (0.2-0.9) 04/04/25 16:12 Eos # (Auto) 0.5 10^3/uL (0.0-0.8) 04/04/25 16:12 Baso # (Auto) 0.1 10^3/uL (0.0-0.1) 04/04/25 16:12 Nucleated RBC % (auto) 0 % 04/04/25 16:12 Nucleated RBCs # 0.0 /100WBC 04/04/25 16:12 Sodium 139 mmol/L (136-145) 04/04/25 16:12 Potassium 4.2 mmol/L (3.5-5.1) 04/04/25 16:12 Chloride 103 mmol/L (98-107) 04/04/25 16:12 Carbon Dioxide 23 mmol/L (22-29) 04/04/25 16:12 Anion Gap 17.2 (5-19) 04/04/25 16:12 BUN 12 mg/dL (6-20) 04/04/25 16:12 Creatinine 0.7 mg/dL (0.7-1.2) 04/04/25 16:12 GFR Calculation 126.2 mL/min (90-130) 04/04/25 16:12 Glucose 89 mg/dL (65-115) 04/04/25 16:12 Calculated Osmolality 287 mOsm/kg (285-295) 04/04/25 16:12 Calcium 10.3 mg/dL (8.5-10.5) 04/04/25 16:12 Total Bilirubin 0.2 mg/dL (0.15-1.2) 04/04/25 16:12 AST 45 U/L (0-40) H 04/04/25 16:12 ALT 101 U/L (0-41) H 04/04/25 16:12 Alkaline Phosphatase 88 U/L (40-130) 04/04/25 16:12 Total Protein 7.9 g/dL (6.6-8.7) 04/04/25 16:12 Albumin 4.7 g/dL (3.5-5.2) 04/04/25 16:12 Globulin 3.2 g/dL (1.3-4.6) 04/04/25 16:12 Lipase 35 U/L (13-60) 04/04/25 16:12 Urine Color Yellow (Yellow) 04/04/25 16:42 Urine Appearance Cloudy (CLEAR) A 04/04/25 16:42 Urine pH 5.0 (5-7) 04/04/25 16:42 Ur Specific [place] 1.023 (1.005-1.030) 04/04/25 16:42 Urine Protein Negative (Negative) 04/04/25 16:42 Urine Glucose (UA) Negative (Normal) 04/04/25 16:42 Urine Ketones Negative (Negative) 04/04/25 16:42 Urine Blood Negative (Negative) 04/04/25 16:42 Urine Nitrate Negative (Negative) 04/04/25 16:42 Urine Bilirubin Negative (Negative) 04/04/25 16:42 Urine Urobilinogen 0.2 mg/dL (Negative) 04/04/25 16:42 Ur Leukocyte Esterase Negative (Negative) 04/04/25 16:42 Urine RBC 0-2 /hpf (0-2) 04/04/25 16:42 Urine WBC 0-5 /hpf (0-5) 04/04/25 16:42 Ur Squamous Epith Cells 0-5 /hpf (0-5) 04/04/25 16:42 Amorphous Sediment Not Reportable 04/04/25 16:42 Urine Bacteria None seen /hpf (NONE) 04/04/25 16:42 Hyaline Casts 0.40 /lpf 04/04/25 16:42 All radiology interpretation(s) finalized by discharge Discharge Plan Discharge Patient Disposition: Home Clinical Impression: Colitis Condition: Stable Prescriptions: New metronidazole 500 mg tablet 500 mg PO Q8H 7 Days Qty: 21 0RF ciprofloxacin HCl 500 mg tablet 500 mg PO BID 7 Days Qty: 14 0RF No Action cholecalciferol (vitamin D3) 50 mcg (2,000 unit) capsule 100 mcg PO DAILY atorvastatin 80 mg tablet 40 mg PO QPM (DME) Blood Pressure Cuff Misc See Rx Instructions .Route Qty: 1 0RF Rx Instructions: As directed nitroglycerin 0.4 mg tablet, sublingual 0.4 mg sublingual Q5M PRN (Reason: chest pain) Qty: 30 0RF Rx Instructions: do not exceed 3 doses per episode sertraline 100 mg tablet 100 mg PO QAM albuterol sulfate 90 mcg/actuation Hfa Aerosol Inhaler 1 puff INHALATION QID PRN (Reason: Shortness Of Breath) dicyclomine 10 mg capsule 10 mg PO TID PRN (Reason: ibs) pregabalin 300 mg capsule 300 mg PO BID divalproex 500 mg tablet extended release 24 hr 1,500 mg PO DAILY Discharge Orders: Discharge ED (Routine); Ordered 04/04/25 Ordered By: Diane Lynn Referrals: Cindy Winchester FNP [Primary Care Provider, Nurse Practitioner] Discharge Diet: Usual diet Discharge Activity: Increase activity as tolerated Patient Instructions: Colitis (ED), Opioid Safety, Pain Management, Patient Portal & Dalia Instructions Activity Restrictions/Additional Instructions: Thank you for choosing [facility] for your healthcare needs today. You have been screened and evaluated and felt safe for discharge. Health conditions do change or evolve sometimes and as such it is important that you follow up with your Primary Doctor to be re checked, 3-5 days is a general good time frame for follow up. You are always welcome to return to the ED for re assessment if your symptoms are worsening or you have new concerns Print Language: Tanzanian Coding Level of Care Code ED International Editorial Producer for Rick Cardenas
[2025-04-04 16:08] VITALS: BP 136/83; O2SAT 96
[2025-04-04 16:20] LABS: Hematocrit 45.1 % (37-53); Hemoglobin 15.40 g/dL (11.27-16.99); Mean Corpuscular HGB Conc 34.1 g/dL (30-55); Mean Corpuscular Hemoglobin 30.1 pg (27-33); Mean Corpuscular Volume 88.3 fl (82-101); Nucleated Red Blood Cells % 0 %; Platelet Count 257 10^3/cmm (157-399); Red Blood Count 5.11 10^6/uL (3.85-5.65); White Blood Count 8.98 10^3/uL (3.29-11.43)
--- NOTE | 2025-04-04 16:23 | PC.PHAR ---
[facility] Pt [facility] having trouble [facility].
[2025-04-04 16:39] LABS: Alanine Aminotransferase 101 U/L (0-41); Albumin Level 4.7 g/dL (3.5-5.2); Alkaline Phosphatase 88 U/L (40-130); Anion Gap 17.2 (5-19); Aspartate Amino Transferase 45 U/L (0-40); Blood Urea Nitrogen 12 mg/dL (6-20); Calcium 10.3 mg/dL (8.5-10.5); Carbon Dioxide 23 mmol/L (22-29); Chloride 103 mmol/L (98-107); Creatinine Clr Calc Pharmacy 148.0392; Globulin 3.2 g/dL (1.3-4.6); Glucose 89 mg/dL (65-115); Lipase 35 U/L (13-60); Osmolality Calculated 287 mOsm/kg (285-295); Potassium 4.2 mmol/L (3.5-5.1); Sodium 139 mmol/L (136-145); Total Protein 7.9 g/dL (6.6-8.7)
--- NOTE | 2025-04-04 16:42 | CTR_ITS ---
PROCEDURE INFORMATION: Exam: CT Abdomen And Pelvis With Contrast Exam date and time: 04/04/2025 4:53 PM Age: 39 years old Clinical indication: Abdominal pain; Generalized TECHNIQUE: Imaging protocol: Computed tomography of the abdomen and pelvis with contrast. Radiation optimization: All CT scans at this facility use at least one of these dose optimization techniques: automated exposure control; mA and/or kV adjustment per patient size (includes targeted exams where dose is matched to clinical indication); or iterative reconstruction. Contrast material: OMNIPAQUE 350; Contrast volume: 100 ml; Contrast route: INTRAVENOUS (IV); COMPARISON: CT abdomen pelvis w con* [id number] 08/17/2024 2:09 PM RADIATION DOSE METRICS: Total DLP (mGy-cm): 835.83 FINDINGS: Liver: The liver is mildly enlarged, measuring 18.4 cm craniocaudal. Mild hepatic steatosis. Gallbladder and biliary ducts: Normal. No calcified stones. No ductal dilation. Pancreas: Normal. No ductal dilation. Spleen: Normal. No splenomegaly. Adrenal glands: Normal. No mass. Kidneys and ureters: Normal. No hydronephrosis. Stomach and bowel: Mild wall thickening along portions of the transverse and descending colon. No significant pericolonic fat stranding. No evidence of bowel obstruction. Appendix: No evidence of appendicitis. Intraperitoneal space: Unremarkable. No free air. No significant fluid collection. Vasculature: Scattered atherosclerotic aortoiliac calcifications. No abdominal aortic aneurysm. Lymph nodes: Unremarkable. No enlarged lymph nodes. Urinary bladder: Unremarkable as visualized. Reproductive: Unremarkable as visualized. Bones/joints: Unremarkable. No acute fracture. Soft tissues: Small fat containing umbilical hernia. Small fat containing bilateral inguinal hernias. CT/CT abdomen pelvis w con* [id number] IMPRESSION: 1. Mild colonic wall thickening along the transverse and descending colon is likely exaggerated by underdistention. Mild colitis not excluded in the correct clinical setting. 2. Mild hepatomegaly with hepatic steatosis.
[2025-04-04 16:45] VITALS: BP 120/87; O2SAT 95
[2025-04-04 16:55] LABS: Glucose Urine UA Negative (Normal); Nitrate Urine Negative (Negative); Specific Gravity, Urine 1.023 (1.005-1.030)
[2025-04-04] MEDS: iohexol 350 mg/mL 500 mL Btl (per mL) IV (16:58)
[2025-04-04 17:42] VITALS: BP 129/87; PULSE 97; RESP 17; O2SAT 99
== END 2025-04-04 17:43 | disposition home or self-care (01) ==
PROVIDERS: Emergency Provider Emergency Medicine; PCP Nurse Practitioner
DX: K52.9 Noninfective gastroenteritis and colitis, unspecified (principal); Z72.0 Tobacco use; I25.10 Atherosclerotic heart disease of native coronary artery without angina pectoris
CPT/HCPCS: 36415; 74177; 80053; 81001; 83690; 85025; 99285

== ENCOUNTER 2025-05-08 14:58 | Outpatient (CLI) | payer OTHER, SELFPAY ==
--- NOTE | 2025-05-08 15:07 | MR_ITS ---
WS: [id number] MRI THORACIC SPINE WITH CONTRAST TECHNIQUE: Sagittal T1, T2 and STIR imaging. Axial T2 imaging. Post gadolinium imaging was obtained. CLINICAL INFORMATION: INCREASED THORACIC PAIN W/SPINAL CORD COMPRESSION COMPARISON: MRI 2023 FINDINGS: Mild thoracic curve. No acute compression. Cord signal appears normal. Small disc protrusions in the mid thoracic spine. T6-7: RIGHT paracentral protrusion with a small annular tear. Slight indentation on the RIGHT ventral thoracic cord. Foramen are patent. T7-8: Mild disc bulging. Tiny annular fissure. Spinal canal and foramen are patent. T8-9: Shallow RIGHT paracentral protrusion. Indentation of the RIGHT ventral thoracic cord. Annular tear. Mild central canal stenosis. Foramen are patent. Adrenal glands are normal. Normal caliber descending thoracic aorta. No abnormal gadolinium enhancement. MR/MR thoracic spine wo/w [id number] IMPRESSION: 1. RIGHT paracentral protrusion T6-7 and RIGHT paracentral protrusion T8-9 are again seen and appear slightly more prominent today compared to previous with small annular tears 2. Mild central canal stenosis T8-T9. 3. Tiny central protrusion T7-T8. 4. No abnormal gadolinium enhancement.
[2025-05-08] MEDS: gadobenate dimeglumine 20 mL vial IV (15:55)
== END 2025-05-08 14:59 | disposition home or self-care (01) ==
LOC: RAD 14:59
PROVIDERS: PCP Nurse Practitioner; Visit Provider Nurse Practitioner
DX: Z01.89 Encounter for other specified special examinations (principal); M51.24 Other intervertebral disc displacement, thoracic region; M48.04 Spinal stenosis, thoracic region; M43.8X4 Other specified deforming dorsopathies, thoracic region; R93.7 Abnormal findings on diagnostic imaging of other parts of musculoskeletal system; M51.84 Other intervertebral disc disorders, thoracic region
CPT/HCPCS: 72157

== ENCOUNTER → 2025-06-21 13:29 | Outpatient (BNVA) | payer OTHER, SELFPAY | PROVIDERS: PCP Nurse Practitioner; Visit Provider Orthopaedic Surgery | DX: M48.02 Spinal stenosis, cervical region (principal); M54.9 Dorsalgia, unspecified | CPT/HCPCS: 72072; 99203 ==

== ENCOUNTER 2025-06-26 13:56 | Outpatient (CLI) | payer OTHER, SELFPAY ==
--- NOTE | 2025-06-26 14:30 | MR_ITS ---
WS: [id number] MRI CERVICAL SPINE NONCONTRAST HISTORY: Neck pain COMPARISON: None available. Technique: Multiplanar, multisequence noncontrast imaging of the cervical spine. Normal cervical alignment with no compression fracture or significant disc space narrowing. Signal within the cervical cord is normal. Visualized posterior fossa is unremarkable. Craniocervical junction, C1 and C2 relationship, odontoid process and soft tissues are normal. C2-C3: Normal. C3-C4: Small central disc protrusion. There is mild contact on the ventral cord and effacement of CSF. Mild bilateral facet arthritis. Mild LEFT foraminal stenosis. C4-C5: Mild disc bulging and mild foraminal stenosis. Mild central stenosis and facet arthritis. C5-C6: Central to RIGHT paracentral small disc protrusion contacting the ventral cord. C6-C7: Mild annular disc bulging. No stenosis. C7-T1: No stenosis. Paravertebral soft tissues are negative. MR/MR cervical spin wo con* [id number] IMPRESSION: 1. No high-grade central stenosis. 2. Small central disc protrusion at C3-4 with mild contact on the cord. 3. Mild central stenosis at C4-5 due to disc bulging. Mild facet arthritis. 4. Small central to RIGHT paracentral disc protrusion contacting the ventral c ord. No stenosis. 5. Normal signal in the cord.
== END 2025-06-26 13:57 | disposition home or self-care (01) ==
PROVIDERS: PCP Nurse Practitioner; Visit Provider Orthopaedic Surgery
DX: M50.221 Other cervical disc displacement at C4-C5 level (principal); M48.02 Spinal stenosis, cervical region; M47.812 Spondylosis without myelopathy or radiculopathy, cervical region; M50.122 Cervical disc disorder at C5-C6 level with radiculopathy; M50.223 Other cervical disc displacement at C6-C7 level
CPT/HCPCS: 72141

== ENCOUNTER → 2025-06-28 16:02 | Outpatient (BNVA) | payer OTHER, SELFPAY | PROVIDERS: PCP Nurse Practitioner; Visit Provider Orthopaedic Surgery | DX: M54.2 Cervicalgia (principal); Z51.89 Encounter for other specified aftercare | CPT/HCPCS: 72050; 99213 ==